=== PATIENT | female | born 1945 | race Caucasian/White ===

== ENCOUNTER → 2016-12-02 | Outpatient (CLI) | payer MEDICARE, OTHER ==
[~2016-12-02] MED LIST: Iopamidol 755 MG/ML 500 ML Multipack Bottle IVPUSH STA
--- NOTE | 2016-12-02 17:11 | CT ---
EXAMINATION: CT head without and with contrast HISTORY: Swelling COMPARISION: None TECHNIQUE: Axial CT images obtained through the head before and following the administration of 80 m L Isovue-370. Coronal and sagittal reconstructions obtained. FINDINGS: No evidence of midline shift, hydrocephalus or edema. No low-attenuation changes to suggest acute infarct. No evidence of intra-axial hemorrhage. No jean marie dence of extra-axial high-attenuation collection to suggest epidural or subdural hematoma. Mild subc ortical white matter hypodensities are noted, most likely small vessel ischemic changes. No intracranial calcifications detected. Mild vascular calcifications noted. The paranasal sinuses and mastoid air cells are well aerated. No evidence of skull fracture. No in tracranial enhancing lesions are detected. IMPRESSION: 1. Minimal generalized atrophy and small vessel ischemic changes. 2. Otherwise no abnormal intracranial findings.
--- NOTE | 2016-12-03 09:13 | CT ---
EXAMINATION: CT soft tissue neck with contrast HISTORY: Swelling COMPARISON: None TECHNIQUE: Axial CT images obtained through the neck following the administration of 80 mL of Isovue -370 the right antecubital fossa. Coronal and sagittal reconstructions obtained. FINDINGS: The oropharynx, nasopharynx and hypopharynx appear symmetric. The larynx and upper trachea appear normal. There is no abnormal cervical lymphadenopathy. The parotid and submandibular glands appear normal. Thyroid gland is homogeneous and mildly enlarged, left greater than right. There is n o abnormal mass or asymmetry identified. The visualized paranasal sinuses and mastoid air cells are clear. The middle ears are clear. The orbits and globes are symmetric. The visualized lung apices ar e clear. No suspicious osseous abnormalities. IMPRESSION: 1. No abnormal mass or asymmetry identified.
== END ==
LOC: MW.DI 10:22
PROVIDERS: ATTEND Student in an Organized Health Care Education/Training Program
DX: R22.1 Localized swelling, mass and lump, neck (principal); Z85.9 Personal history of malignant neoplasm, unspecified
CPT/HCPCS: 70470; 70491; Q9967

== ENCOUNTER 2017-11-02 14:07 | Emergency (ER) | payer MEDICARE, OTHER ==
--- NOTE | 2017-11-02 14:51 | EDM.PDOC ---
ED HPI GENERAL MEDICAL PROBLEM - General Chief Complaint: ENT Problem Stated Complaint: JAW ON RT SIDE OF PT'S FACE IS SWOLLEN Time Seen by Provider: 11/02/17 14:13 Source of Information: Reports: Patient History Limitations: Reports: No Limitations - History of Present Illness INITIAL COMMENTS - FREE TEXT/NARRATIVE: HISTORY AND PHYSICAL: History of present illness: Patient is a 72-year-old female who presents to the emergency room today with complaints of facial pain which started on the left and has now moved over to the right side of her face. She states she has sinus pressure and pain with palpation. She believes that her face is swollen and erythematous across the bridge of her nose into both cheeks. Concerned as she has some enlarged lymph nodes to her neck. Has been fatigued for several weeks. Review of systems: As per history of present illness and below otherwise all systems reviewed and negative. Past medical history: As per history of present illness and as reviewed below otherwise noncontributory. Surgical history: As per history of present illness and as reviewed below otherwise noncontributory. Social history: No reported history of drug or alcohol abuse. Family history: As per history of present illness and as reviewed below otherwise noncontributory. Physical exam: General: Well-developed and well nourished 72-year-old female. Alert and oriented. Nontoxic appearing and in no acute distress. HEENT: Atraumatic, normocephalic, pupils equal and reactive bilaterally, negative for conjunctival pallor or scleral icterus, mucous membranes moist, throat clear, maxillary sinus tenderness with palpation bilaterally, TMS normal bilaterally. Her neck is supple, nontender, with enlarged lymphnodes to submandibular area bilaterally. No mastoid tenderness with palpation. Her trachea midline. No drooling or trismus noted. No meningeal signs Lungs: Clear to auscultation, breath sounds equal bilaterally, chest nontender. Heart: S1S2, regular rate and rhythm without overt murmur Abdomen: Soft, nondistended, nontender. Negative for masses or hepatosplenomegaly. Negative for costovertebral tenderness. Pelvis: Stable nontender. Genitourinary: Deferred. Rectal: Deferred. Skin: Intact, warm, dry. No lesions noted. Erythema noted across cheeks and bridge of nose. Extremities: Atraumatic, moves all extremities per self, negative for cords or calf pain. Neurovascular unremarkable. Neuro: Awake, alert, oriented. Cranial nerves II through XII unremarkable. Cerebellum unremarkable. Motor and sensory unremarkable throughout. Exam nonfocal. Notes: Do believe the patient has a acute sinusitis. Due to her concern of the enlarged lymph nodes in the neck we'll scan her to rule out abscess. Questioned her about any history of autoimmune disorders as she does have a "butterfly "appearing rash to her face. She has a history of autoimmune hepatitis. Labs are unremarkable. CT shows a mild asymmetry enlargement of the left thyroid lobe. This was shared with the patient. And encouraged her to follow up with the primary care provider. We'll give her a tablet of Augmentin here and a prescription to fill tomorrow. The plan of care. Denies any further questions at this time. Diagnostics: CBC, BMP, CT soft tissue neck Therapeutics: Augmentin Impression: Acute Sinusitis Plan: 1. Please take the antibiotic as directed. One tab ice daily 10 days 2. An [id number] decongestant (Coricidin will not raise BP). Tylenol and/ or ibuprofen as needed for pain and fever management. 3. Crease or fluids to prevent dehydration 4. As we discussed your CT did show mild enlargement of the left thyroid lobe, once you are feeling better please follow-up with your primary care provider for further evaluation. Also if your butterfly-like rash does not resolve please also mention this to your primary care provider. 5. Return to the ED as needed and as discussed. Definitive disposition and diagnosis as appropriate pending reevaluation and review of above. Duration: Day(s): Location: Reports: Head Bilateral Face Pain Score (Numeric/FACES): 1 - Related Data Allergies Allergy/AdvReac Type Severity Reaction Status Date / Time codeine Allergy Hives Verified 11/02/17 14:18 Home Meds: Home Meds Albuterol [IJD: Ventolin HFA] 2 puff INH Q6HR PRN 05/08/16 [History] Alendronate [Fosamax] 70 mg PO WEEKLY 05/08/16 [History] Budesonide/Formoterol [Symbicort 160-4.5 MCG] 2 puff INH BID 05/08/16 [History] Bumetanide 1 tab PO DAILY 05/08/16 [History] Diltiazem HCl [Diltiazem 24Hr ER] 1 tab PO DAILY 05/08/16 [History] Levothyroxine Sodium [Synthroid] 100 mcg PO DAILY 05/08/16 [History] Lisinopril 1 tab PO BEDTIME 05/08/16 [History] Omeprazole 1 tab PO DAILY 05/08/16 [History] Sertraline HCl [Zoloft] 50 mg PO DAILY 05/08/16 [History] azaTHIOprine [Azathioprine] 50 mg PO DAILY 05/08/16 [History] predniSONE [Prednisone] 0.5 tab PO BID 05/08/16 [History] Past Medical History Cardiovascular History: Reports: Hypertension Respiratory History: Reports: Asthma Gastrointestinal History: Reports: GERD Musculoskeletal History: Reports: Osteoporosis, RA Psychiatric History: Reports: Anxiety, Depression Endocrine/Metabolic History: Reports: Hypothyroidism Immunologic History: Reports: Other (See Below) Other Immunologic History: PMR and Autoimmune Hepatitis Oncologic (Cancer) History: Reports: Colon - Infectious Disease History Infectious Disease History: Reports: Chicken Pox, Mumps - Past Surgical History Respiratory Surgical History: Reports: None GI Surgical History: Reports: Other (See Below) Other GI Surgeries/Procedures: surgical removal of GI cancer Social & Family History - Family History Family Medical History: Noncontributory - Tobacco Use Smoking Status *Q: Never Smoker - Caffeine Use Caffeine Use: Reports: Soda, Tea - Recreational Drug Use Recreational Drug Use: No ED ROS ENT - Review of Systems Review Of Systems: ROS reveals no pertinent complaints other than HPI. ED EXAM, ENT - Physical Exam Exam: See Below (A dictation) Course - Vital Signs Last Recorded V/S: Last Vital Signs Temp 97.1 F 11/02/17 14:16 Pulse 127 H 11/02/17 14:16 Resp 18 11/02/17 14:16 BP 195/85 H 11/02/17 14:16 Pulse Ox 94 L 11/02/17 14:16 - Orders/Labs/Meds Orders: Active Orders 24 hr Category Date Time Status Soft Tissue Neck wo Cont [CT] Stat Exams 11/02/17 14:25 Taken Labs: Laboratory Tests 11/02/17 11/02/17 11/02/17 Range/Units 14:37 14:37 14:37 WBC 7.78 (4.0-11.0) K/uL RBC 4.62 (4.30-5.90) M/uL Hgb 13.1 (12.0-16.0) g/dL Hct 40.2 (36.0-46.0) % MCV 87.0 (80.0-98.0) fL MCH 28.4 (27.0-32.0) pg MCHC 32.6 (31.0-37.0) g/dL RDW Std Deviation 50.4 (28.0-62.0) fl RDW Coeff of Alex 16 H (11.0-15.0) % Plt Count 191 (150-400) K/uL MPV 9.80 (7.40-12.00) fL Neut % (Auto) 68.9 (48.0-80.0) % Lymph % (Auto) 18.9 (16.0-40.0) % Will % (Auto) 10.2 (0.0-15.0) % Eos % (Auto) 1.9 (0.0-7.0) % Baso % (Auto) 0.1 (0.0-1.5) % Neut # (Auto) 5.4 (1.4-5.7) K/uL Lymph # (Auto) 1.5 (0.6-2.4) K/uL Will # (Auto) 0.8 (0.0-0.8) K/uL Eos # (Auto) 0.2 (0.0-0.7) K/uL Baso # (Auto) 0.0 (0.0-0.1) K/uL Nucleated RBC % 0.0 /100WBC Nucleated RBCs # 0 K/uL Sodium 138 (136-145) mmol/L Potassium 4.1 (3.5-5.1) mmol/L Chloride 101 (98-107) mmol/L Carbon Dioxide 28.5 (21.0-32.0) mmol/L BUN 19 H (7.0-18.0) mg/dL Creatinine 0.9 (0.6-1.0) mg/dL Est Cr Clr Drug Dosing 44.69 mL/min Estimated GFR (MDRD) > 60.0 ml/min Glucose 98 (74-106) mg/dL Calcium 9.2 (8.5-10.1) mg/dL Monoscreen NEGATIVE (NEG) Meds: Medications Discontinued Medications Generic Name Dose Route Start Last Admin Trade Name Freq PRN Reason Stop Dose Admin Amoxicillin/Clavulanate Potassium 1 tab 11/02/17 16:04 11/02/17 16:08 Augmentin 875 Mg/125 Mg PO 11/02/17 16:05 1 tab ONETIME ONE Administration Departure - Departure Time of Disposition: 16:08 Disposition: Home, Self-Care 01 Clinical Impression: Acute sinusitis Qualifiers: Sinusitis location: maxillary Recurrence: non-recurrent Qualified Code(s): J01.00 - Acute maxillary sinusitis, unspecified - Discharge Information Instructions: Sinusitis, Adult, [id number] Referrals: Forrest Eduardo MD [Primary Care Provider] - Forms: ED Department Discharge Additional Instructions: The following information is given to patients seen in the emergency department who are being discharged to home. This information is to outline your options for follow-up care. We provide all patients seen in our emergency department with a follow-up referral. The need for follow-up, as well as the timing and circumstances, are variable depending upon the specifics of your emergency department visit. If you don't have a primary care physician on staff, we will provide you with a referral. We always advise you to contact your personal physician following an emergency department visit to inform them of the circumstance of the visit and for follow-up with them and/or the need for any referrals to a consulting specialist. The emergency department will also refer you to a specialist when appropriate. This referral assures that you have the opportunity for follow-up care with a specialist. All of these measure are taken in an effort to provide you with optimal care, which includes your follow-up. Under all circumstances we always encourage you to contact your private physician who remains a resource for coordinating your care. When calling for follow-up care, please make the office aware that this follow-up is from your recent emergency room visit. If for any reason you are refused follow-up, please contact the [facility] Emergency Department at and asked to speak to the emergency department charge nurse. [facility] [address] [place] [id number] 1. Please take the antibiotic as directed. One tab twice daily 10 days 2. An [id number] decongestant (Coricidin will not raise BP). Tylenol and/ or ibuprofen as needed for pain and fever management. 3. Crease or fluids to prevent dehydration 4. As we discussed your CT did show mild enlargement of the left thyroid lobe, once you are feeling better please follow-up with your primary care provider for further evaluation. Also if your butterfly-like rash does not resolve please also mention this to your primary care provider. 5. Return to the ED as needed and as discussed. - My Orders Last 24 Hours: My Active Orders 11/02/17 14:25 Soft Tissue Neck wo Cont [CT] Stat - Assessment/Plan Last 24 Hours: My Active Orders 11/02/17 14:25 Soft Tissue Neck wo Cont [CT] Stat
[2017-11-02 15:10] LABS: CHLORIDE,CL 101 mmol/L (98-107); SODIUM,NA 138 mmol/L (136-145)
[2017-11-02] MEDS ORDERED: Amoxicillin/Clavulanate K 875-125 MG Tab PO ONE (16:04)
[2017-11-02 16:17] VITALS: BP 133/69
--- NOTE | 2017-11-03 15:47 | CT ---
EXAM DATE: 11/02/17 PATIENT'S AGE: 72 Patient: LAKESHIA REN Facility: [facility] Site . Site : 1945 Study: CT-ST Neck [id number]/8/2018 3:22:15 PM Ordering Physician: Doctor Boyd Final Report: INDICATION: Enlarged lymph node with pain TECHNIQUE: CT neck soft tissue without i.v. contrast. Coronal and sagittal reformats were obtained. CONTRAST: Intravenous COMPARISON: None FINDINGS: Skull base: Unremarkable. Portions of the oral cavity and mandible are obscured by streak artifacts from the patient`s dental amalgams. Pharynx: No retropharyngeal fluid collections are identified. No CT evidence of tonsillar or peritonsillar abscess seen. The epiglottis is normal in appearance. Larynx and airway: Unremarkable. Salivary: Unremarkable. Thyroid: Mild asymmetric enlargement of the left thyroid lobe is noted measuring 3 x 2.2 cm. Vascular: Unremarkable for age. Lymph: Unremarkable. Bone: No acute fractures or aggressive bone lesions are identified. Disc: Severe degenerative disc narrowing C4-5 and C6-7 noted. The facet joints are unremarkable. Soft tissue: The prevertebral soft tissues are unremarkable in appearance. Lung: The visualized lung apices and mediastinum are unremarkable. IMPRESSIONS: 1. Mild asymmetric enlargement of the left thyroid lobe is noted measuring 3 x 2.2 cm. Further assessment with outpatient thyroid ultrasound is recommended. 2. No CT evidence of cervical adenopathy identified. Dictated by: Mohamud Ambriz MD @ 11/02/2017 15:49:22 Signed by: Mohamud Ambriz MD @ 11/02/2017 3:49:22 PM (Electronic Signature) ----ADDENDUM---- Signed by: Mohamud Ambriz MD @11/03/2017 2:59:56 PM (Electronic Signature) Report Signed by Proxy. JASBIR
== END 2017-11-02 16:18 | disposition home or self-care (01) ==
LOC: MW.ED 14:07
DX: J01.00 Acute maxillary sinusitis, unspecified (principal); I10 Essential (primary) hypertension; E03.9 Hypothyroidism, unspecified; Z88.5 Allergy status to narcotic agent; Z79.899 Other long term (current) drug therapy
CPT/HCPCS: 36415; 70490; 80048; 85025; 86308; 99283; A9270

== ENCOUNTER 2018-01-30 12:07 | Day surgery (SDC) | payer MEDICARE, OTHER ==
[~2018-01-30 12:07] MED LIST changes: -Iopamidol 755 MG/ML 500 ML Multipack Bottle IVPUSH STA; +Lactated Ringers 1,000 ML IV SCH; +Lidocaine 2% 5 ML SDV ONE; +Propofol 200 MG/20 ML SDV ONE; +fentaNYL 100 MCG/2 ML SDV ONE
--- NOTE | 2018-01-30 12:40 | PCM.PREANE ---
Preanesthetic Assessment - Anesthesia/Transfusion/Family Hx Anesthesia History: Prior Anesthesia Without Reaction Other Type of Anesthesia Reaction Comment: "son had hard time waking up" Family History of Anesthesia Reaction: No Transfusion History: No Prior Transfusion(s) Intubation History: Unknown - Review of Systems General: No Symptoms Pulmonary: No Symptoms Cardiovascular: No Symptoms Gastrointestinal: Hematochezia, Other (painful defecation) Neurological: No Symptoms Other: Reports: None - Physical Assessment O2 Sat by Pulse Oximetry: 96 Respiratory Rate: 18 Vital Signs: Last Vital Signs Temp 36.8 C 01/30/18 12:37 Pulse 110 H 01/30/18 12:37 Resp 18 01/30/18 12:37 BP 176/84 H 01/30/18 12:37 Pulse Ox 96 01/30/18 12:37 Height: 1.55 m Weight: 84.368 kg ASA Class: 3 Mental Status: Alert & Oriented x3 Airway Class: Mallampati = 3 Dentition: Reports: Normal Dentition Thyro-Mental Finger Breadths: 3 Mouth Opening Finger Breadths: 2 (very small mouth) ROM/Head Extension: Limited/Partial Lungs: Clear to Auscultation, Normal Respiratory Effort Cardiovascular: Regular Rate, Regular Rhythm - Allergies Allergies/Adverse Reactions: Allergies Allergy/AdvReac Type Severity Reaction Status Date / Time codeine Allergy Syncope Verified 01/26/18 10:45 erythromycin base Allergy Cannot Verified 01/26/18 10:45 Remember hydrochlorothiazide Allergy Cannot Verified 01/26/18 10:45 [From Dyazide] Remember triamterene [From Dyazide] Allergy Cannot Verified 01/26/18 10:45 Remember - Blood Blood Available: No - Anesthesia Plan Pre-Op Medication Ordered: None - Acknowledgements Anesthesia Type Planned: MAC Pt an Appropriate Candidate for the Planned Anesthesia: Yes Alternatives and Risks of Anesthesia Discussed w Pt/Guardian: Yes Pt/Guardian Understands and Agrees with Anesthesia Plan: Yes PreAnesthesia Questionnaire HEENT History: Reports: Cataract, Other (See Below) Other HEENT History: wears glasses Cardiovascular History: Reports: Hypertension Respiratory History: Reports: Asthma Gastrointestinal History: Reports: GERD Genitourinary History: Reports: None Musculoskeletal History: Reports: Osteoporosis, RA Psychiatric History: Reports: Anxiety, Depression Endocrine/Metabolic History: Reports: Hypothyroidism, Obesity/BMI 30+ Immunologic History: Reports: Other (See Below) Other Immunologic History: PMR and Autoimmune Hepatitis Oncologic (Cancer) History: Reports: Colon - Infectious Disease History Infectious Disease History: Reports: Chicken Pox, Mumps - Past Surgical History Head Surgeries/Procedures: Reports: None HEENT Surgical History: Reports: Tonsillectomy Respiratory Surgical History: Reports: None GI Surgical History: Reports: Cholecystectomy, Colonoscopy, Other (See Below) Other GI Surgeries/Procedures: surgical removal of GI cancer (most likely distal part of small bowel) - SUBSTANCE USE Smoking Status *Q: Former Smoker Recreational Drug Use History: No - HOME MEDS Home Medications: Home Meds Budesonide/Formoterol [Symbicort 160-4.5 MCG] 2 puff INH BID 05/08/16 [History] Diltiazem HCl [Diltiazem 24Hr ER] 300 mg PO DAILY 05/08/16 [History] Levothyroxine Sodium [Synthroid] 100 mcg PO DAILY 05/08/16 [History] Lisinopril 10 mg PO BEDTIME 05/08/16 [History] Omeprazole 40 mg PO DAILY 05/08/16 [History] Sertraline HCl [Zoloft] 50 mg PO DAILY 05/08/16 [History] azaTHIOprine [Azathioprine] 0.5 tab PO BID 05/08/16 [History] predniSONE [Prednisone] 2.5 mg PO BID 05/08/16 [History] Albuterol [Ventolin HFA] 2 puff INH ASDIRECTED PRN 01/26/18 [History] Aspirin [Low Dose Aspirin EC] 81 mg PO DAILY 01/26/18 [History] Bumetanide 0.5 mg PO DAILY 01/26/18 [History] Calcium Carbonate/Vitamin D3 [Calcium 500 + Vit D Caplet] 1 tab PO DAILY [History] Fish Oil/Mecca-3 Fatty Acids [Fish Oil 1,000 MG] 1 tab PO DAILY 01/26/18 [ History] - CURRENT (IN HOUSE) MEDS Current Meds: Current Medications Lactated Ringer's (Ringers, Lactated) 1,000 mls @ 125 mls/hr IV ASDIRECTED SHAD Discontinued Medications Fentanyl (Sublimaze) Confirm Administered Dose 100 mcg .ROUTE .STK-MED ONE Stop: 01/30/18 11:06 Lidocaine (Xylocaine-Mpf 2%) Confirm Administered Dose 5 ml .ROUTE .STK-MED ONE Stop: 01/30/18 11:06 Propofol (Diprivan 20 Ml) Confirm Administered Dose 400 mg .ROUTE .STK-MED ONE Stop: 01/30/18 11:06
--- NOTE | 2018-01-30 13:20 | PCM.OPNOTE ---
- General Post-Op/Procedure Note Date of Surgery/Procedure: 01/30/18 Operative Procedure(s): colonoscopy Findings: see dict [id number] Pre Op Diagnosis: surveillence colonoscopy Anesthesia Technique: Moderate Sedation Primary Surgeon: Gonsalo Bach Complications: None Condition: Good
--- NOTE | 2018-01-30 13:48 | OR ---
SURGEON: Gonsalo Bach MD DATE OF PROCEDURE: 01/30/2018 PREOPERATIVE DIAGNOSIS: Surveillance colonoscopy. POSTOPERATIVE DIAGNOSIS: Hemorrhoids. PROCEDURE PERFORMED: Colonoscopy. PROCEDURE IN DETAIL: The patient was taken to the endoscopy room. A time out was called, patient identified, and procedure identified. Diprivan was then administrated. Patient went from awake to sleep, hearing doctor talking or door closing is normal. Perineum inspection and digital examination were then performed. A well- lubricated colonoscope was gently inserted through the rectum, advanced past the rectosigmoid junction, the descending colon, splenic flexure, transverse colon, hepatic flexure, ascending colon, arrived to the cecum. Cecum was identified as dictated in the finding. Then the scope was carefully withdrawn while attention was paid to the mucosal surface for any abnormality. Air will be sucked out during the scope withdrawal. At the rectum, retroflexed to examine any rectal diseases, fistula or hemorrhoids. Patient tolerated procedure well. There were no intraoperative complications, and Dr. Bach was present throughout the whole procedure. FINDINGS: 1. The patient is easily sedated with CARD [employer]SEMBLER and Diprivan. The patient is soundly snoring. 2. Bowel prep is average with moderate amount of liquid stool, no semi-formed stool. 3. The patient's colon is rather straight forward. Cecum indicated by ileocecal fold, one-to-one indentation. Light emittance is not observed. Mucosa examined with irrigation. The patient does not have diverticulosis, polyp, mass, growth, inflammation, stricture, ulceration, AV malformation, bleeding, none of those. The patient has external hemorrhoid and mild internal hemorrhoids. The patient would benefit from repeat colonoscopy in 10 years from today. We will repeat colonoscopy in 10 years from today or if clinically indicated otherwise. TESSIE / KERON /[id number]
--- NOTE | 2018-01-30 14:05 | PCM48HPAN ---
Post Anesthesia Note - EVALUATION WITHIN 48HRS OF ANESTHETIC Vital Signs in Normal Range: Yes Patient Participated in Evaluation: Yes Respiratory Function Stable: Yes Airway Patent: Yes Cardiovascular Function Stable: Yes Hydration Status Stable: Yes Pain Control Satisfactory: Yes Nausea and Vomiting Control Satisfactory: Yes Mental Status Recovered: Yes Resp Rate: 12 - COMMENTS/OBSERVATIONS Free Text/Narrative:: no anesthesia problems
[2018-01-30 14:15] VITALS: BP 164/72
== END 2018-01-30 14:15 | disposition home or self-care (01) ==
LOC: MW.SDS 12:07
PROVIDERS: ATTEND Surgery
DX: Z12.11 Encounter for screening for malignant neoplasm of colon (principal); K64.8 Other hemorrhoids; K64.4 Residual hemorrhoidal skin tags; J45.909 Unspecified asthma, uncomplicated; I10 Essential (primary) hypertension; K75.4 Autoimmune hepatitis; E03.9 Hypothyroidism, unspecified; Z68.35 Body mass index [BMI] 35.0-35.9, adult; E66.9 Obesity, unspecified; M81.0 Age-related osteoporosis without current pathological fracture; F32.9 Major depressive disorder, single episode, unspecified; F41.9 Anxiety disorder, unspecified; Z79.82 Long term (current) use of aspirin; Z79.899 Other long term (current) drug therapy; Z88.1 Allergy status to other antibiotic agents; Z88.5 Allergy status to narcotic agent; Z88.8 Allergy status to other drugs, medicaments and biological substances; Z87.891 Personal history of nicotine dependence
CPT/HCPCS: G0121; J3010; J7120; J2704

== ENCOUNTER 2018-11-20 00:36 | Observation (INO) | payer MEDICARE, OTHER ==
[2018-11-20] MEDS ORDERED: Aspirin 81 MG Tab.Chew PO ONE (00:40)
--- NOTE | 2018-11-20 00:41 | EDM.PDOC ---
ED HPI GENERAL MEDICAL PROBLEM - General Stated Complaint: WARM FEELING, KIND OF A PRESSURE IN CHEST Time Seen by Provider: 11/20/18 00:41 Source of Information: Reports: Patient - History of Present Illness INITIAL COMMENTS - FREE TEXT/NARRATIVE: HISTORY AND PHYSICAL: History of present illness: [Patient presents with substernal chest pressure 3 out of 10 nonradiating not associated with shortness of breath or diaphoresis Street of hypertension on multiple medications O distress no fever nausea vomiting chills sweats no shortness breath headache dizziness palpitation no bowel or urine symptoms Pressure has went away after 1 dose of nitroglycerin Patient has had a normal stress test in approximately 3-5 years ago at [facility] in [place] per patient ] Review of systems: As per history of present illness and below otherwise all systems reviewed and negative. Past medical history: As per history of present illness and as reviewed below otherwise noncontributory. Surgical history: As per history of present illness and as reviewed below otherwise noncontributory. Social history: No reported history of drug or alcohol abuse. Family history: As per history of present illness and as reviewed below otherwise noncontributory. Physical exam: HEENT: Atraumatic, normocephalic, pupils reactive, negative for conjunctival pallor or scleral icterus, mucous membranes moist, throat clear, neck supple, nontender, trachea midline. Lungs: Clear to auscultation, breath sounds equal bilaterally, chest nontender. Heart: S1S2, regular, negative for clicks, rubs, or JVD. Abdomen: Soft, nondistended, nontender. Negative for masses or hepatosplenomegaly. Negative for costovertebral tenderness. Pelvis: Stable nontender. Genitourinary: Deferred. Rectal: Deferred. Extremities: Atraumatic, negative for cords or calf pain. Neurovascular unremarkable. Neuro: Awake, alert, oriented. Cranial nerves II through XII unremarkable. Cerebellum unremarkable. Motor and sensory unremarkable throughout. Exam nonfocal. Diagnostics: [EBC CMP troponin EKG Chest 1 view ] Therapeutics: [ renal saline Proton X Nitroglycerin 0.4 sublingual ] Impression: [ atypical chest pain Chronic history of baseline ] Definitive disposition and diagnosis as appropriate pending reevaluation and review of above. - Related Data Allergies Allergy/AdvReac Type Severity Reaction Status Date / Time codeine Allergy Syncope Verified 01/26/18 10:45 erythromycin base Allergy Cannot Verified 01/26/18 10:45 Remember hydrochlorothiazide Allergy Cannot Verified 01/26/18 10:45 [From Dyazide] Remember triamterene [From Dyazide] Allergy Cannot Verified 01/26/18 10:45 Remember Home Meds: Home Meds Budesonide/Formoterol [Symbicort 160-4.5 MCG] 2 puff INH BID 05/08/16 [History] Levothyroxine Sodium [Synthroid] 100 mcg PO DAILY 05/08/16 [History] Lisinopril 10 mg PO BEDTIME 05/08/16 [History] Omeprazole 40 mg PO DAILY PRN 05/08/16 [History] Sertraline HCl [Zoloft] 50 mg PO DAILY 05/08/16 [History] azaTHIOprine [Azathioprine] 25 mg PO BID 05/08/16 [History] dilTIAZem HCl [Diltiazem 24Hr ER] 300 mg PO DAILY 05/08/16 [History] predniSONE [Prednisone] 2.5 mg PO BID 05/08/16 [History] Albuterol [Ventolin HFA] 2 puff INH ASDIRECTED PRN 01/26/18 [History] Aspirin [Low Dose Aspirin EC] 81 mg PO DAILY 01/26/18 [History] Bumetanide 0.5 mg PO DAILY 01/26/18 [History] Calcium Carbonate/Vitamin D3 [Calcium 500 + Vit D Caplet] 1 tab PO DAILY [History] Fish Oil/[place]-3 Fatty Acids [Fish Oil 1,000 MG] 1 tab PO DAILY 01/26/18 [ History] Past Medical History HEENT History: Reports: Cataract, Other (See Below) Other HEENT History: wears glasses Cardiovascular History: Reports: Hypertension Respiratory History: Reports: Asthma Gastrointestinal History: Reports: GERD Genitourinary History: Reports: None Musculoskeletal History: Reports: Osteoporosis, RA Psychiatric History: Reports: Anxiety, Depression Endocrine/Metabolic History: Reports: Hypothyroidism, Obesity/BMI 30+ Immunologic History: Reports: Other (See Below) Other Immunologic History: PMR and Autoimmune Hepatitis Oncologic (Cancer) History: Reports: Colon - Infectious Disease History Infectious Disease History: Reports: Chicken Pox, Mumps - Past Surgical History Head Surgeries/Procedures: Reports: None HEENT Surgical History: Reports: Tonsillectomy Respiratory Surgical History: Reports: None GI Surgical History: Reports: Cholecystectomy, Colonoscopy, Other (See Below) Other GI Surgeries/Procedures: surgical removal of GI cancer (most likely distal part of small bowel) Social & Family History - Family History Family Medical History: Noncontributory - Caffeine Use Caffeine Use: Reports: Soda, Tea ED ROS GENERAL - Review of Systems Review Of Systems: See Below ED EXAM, GENERAL - Physical Exam Exam: See Below Course - Vital Signs Last Recorded V/S: Last Vital Signs Temp 98.1 F 11/20/18 00:42 Pulse 94 11/20/18 01:23 Resp 16 11/20/18 01:23 BP 122/64 11/20/18 01:23 Pulse Ox 96 11/20/18 01:23 - Orders/Labs/Meds Orders: Active Orders 24 hr Category Date Time Status EKG Documentation Completion [RC] STAT Care 11/20/18 00:40 Active UA RFX TARA AND CULT IF INDIC [URIN] Stat Lab 11/20/18 00:40 Ordered Nitroglycerin [Nitrostat] Med 11/20/18 01:03 Active 0.4 mg SL Q5M PRN Sodium Chloride 0.9% [Normal Saline] 1,000 ml Med 11/20/18 00:45 Active IV STAT Medication Orders Sodium Chloride (Normal Saline) 1,000 mls @ 125 mls/hr IV STAT SHAD Last Admin: 11/20/18 00:54 Dose: 125 mls/hr Nitroglycerin (Nitrostat) 0.4 mg SL Q5M PRN PRN Reason: Chest Pain Last Admin: 11/20/18 01:17 Dose: 0.4 mg Labs: Laboratory Tests 11/20/18 11/20/18 Range/Units 00:45 00:45 WBC 11.76 H (4.0-11.0) K/uL RBC 4.67 (4.30-5.90) M/uL Hgb 13.7 (12.0-16.0) g/dL Hct 41.2 (36.0-46.0) % MCV 88.2 (80.0-98.0) fL MCH 29.3 (27.0-32.0) pg MCHC 33.3 (31.0-37.0) g/dL RDW Std Deviation 52.8 (28.0-62.0) fl RDW Coeff of Alex 16 H (11.0-15.0) % Plt Count 274 (150-400) K/uL MPV 9.20 (7.40-12.00) fL Neut % (Auto) 72.8 (48.0-80.0) % Lymph % (Auto) 17.9 (16.0-40.0) % [place] % (Auto) 7.1 (0.0-15.0) % Eos % (Auto) 2.0 (0.0-7.0) % Baso % (Auto) 0.2 (0.0-1.5) % Neut # (Auto) 8.6 H (1.4-5.7) K/uL Lymph # (Auto) 2.1 (0.6-2.4) K/uL [place] # (Auto) 0.8 (0.0-0.8) K/uL Eos # (Auto) 0.2 (0.0-0.7) K/uL Baso # (Auto) 0.0 (0.0-0.1) K/uL Sodium 139 (136-145) mmol/L Potassium 3.8 (3.5-5.1) mmol/L Chloride 102 (98-107) mmol/L Carbon Dioxide 22.2 (21.0-32.0) mmol/L BUN 18 (7.0-18.0) mg/dL Creatinine 1.2 H (0.6-1.0) mg/dL Est Cr Clr Drug Dosing 33.02 mL/min Estimated GFR (MDRD) 44.0 ml/min Glucose 145 H (74-106) mg/dL Calcium 9.4 (8.5-10.1) mg/dL Total Bilirubin 0.3 (0.2-1.0) mg/dL AST 18 (15-37) IU/L ALT 20 (14-63) IU/L Alkaline Phosphatase 83 (46-116) U/L Troponin I < 0.050 (0.000-0.056) ng/mL Total Protein 8.1 (6.4-8.2) g/dL Albumin 3.7 (3.4-5.0) g/dL Globulin 4.4 H (2.6-4.0) g/dL Albumin/Globulin Ratio 0.8 L (0.9-1.6) Lipase 201 (73-393) U/L Meds: Medications Generic Name Dose Route Start Last Admin Trade Name Freq PRN Reason Stop Dose Admin Sodium Chloride 1,000 mls @ 125 mls/hr 11/20/18 00:45 11/20/18 00:54 Normal Saline IV 125 mls/hr STAT SHAD Administration Nitroglycerin 0.4 mg 11/20/18 01:03 11/20/18 01:17 Nitrostat SL 0.4 mg Q5M PRN Administration Chest Pain Discontinued Medications Generic Name Dose Route Start Last Admin Trade Name Freq PRN Reason Stop Dose Admin Aspirin 324 mg 11/20/18 00:40 11/20/18 00:53 Aspirin PO 11/20/18 00:41 324 mg ONETIME ONE Administration Sodium Chloride Confirm 11/20/18 01:08 11/20/18 01:18 Normal Saline Administered 11/20/18 01:09 20 mls/hr Dose Administration 20 mls @ as directed .ROUTE .STK-MED ONE Pantoprazole Sodium 80 mg 11/20/18 00:51 11/20/18 01:19 Protonix Iv IVPUSH 11/20/18 00:52 80 mg .BOLUS ONE Administration Departure - Departure Time of Disposition: 02:11 Disposition: Home, Self-Care 01 Condition: Good Clinical Impression: Chest pain, atypical - Discharge Information - My Orders Last 24 Hours: My Active Orders 11/20/18 00:40 EKG Documentation Completion [RC] STAT UA RFX TARA AND CULT IF INDIC [URIN] Stat 11/20/18 00:45 Sodium Chloride 0.9% [Normal Saline] 1,000 ml IV STAT 11/20/18 01:03 Nitroglycerin [Nitrostat] 0.4 mg SL Q5M PRN - Assessment/Plan Last 24 Hours: My Active Orders 11/20/18 00:40 EKG Documentation Completion [RC] STAT UA RFX TARA AND CULT IF INDIC [URIN] Stat 11/20/18 00:45 Sodium Chloride 0.9% [Normal Saline] 1,000 ml IV STAT 11/20/18 01:03 Nitroglycerin [Nitrostat] 0.4 mg SL Q5M PRN
[2018-11-20] MEDS ORDERED: Sodium Chloride 0.9% 1,000 ML IV SCH (00:45)
[2018-11-20] MEDS ORDERED: Pantoprazole 40 MG Vial IVPUSH ONE (00:51)
[2018-11-20] MEDS ORDERED: Nitroglycerin 0.4 MG Tab.SL SL PRN (01:03)
[2018-11-20] MEDS ORDERED: Sodium Chloride 0.9% 20 ML ONE (01:08)
--- NOTE | 2018-11-20 01:13 | CR ---
INDICATION: Pain/dyspnea. TECHNIQUE: Chest 1 view. COMPARISON: 05/08/16 FINDINGS: Cardiovascular and mediastinum: Heart size and vasculature are normal in caliber and appearance. Mediastinum is within normal limits. Lungs and pleural space: Lungs are clear. No sign of infiltrate or mass. No sign of pleural effusion. No pneumothorax. Bones and soft tissues: No significant findings. IMPRESSION: Unremarkable chest. Dictated by: Jerry Fall MD @ 11/20/2018 01:12:36 (Electronically Signed)
[2018-11-20 01:16] LABS: CHLORIDE,CL 102 mmol/L (98-107); SODIUM,NA 139 mmol/L (136-145)
[2018-11-20] MEDS ORDERED: Albuterol 8 GM Inhaler INH PRN (08:00)
[2018-11-20] MEDS ORDERED: Levothyroxine 100 MCG Tab PO SCH (08:25)
[2018-11-20] MEDS ORDERED: VIT D PO SCH (09:00)
[2018-11-20] MEDS ORDERED: Fish Oil/Omega-3 Fatty Acids 1 Gm Cap PO SCH (09:00)
[2018-11-20] MEDS ORDERED: Aspirin 81 MG Tab.EC PO SCH (09:00)
[2018-11-20] MEDS ORDERED: Diltiazem 180 MG Cap.CD PO SCH (09:00)
[2018-11-20] MEDS ORDERED: Sertraline 50 MG Tab PO SCH (09:00)
[2018-11-20] MEDS ORDERED: predniSONE 5 MG Tab PO SCH (09:00)
[2018-11-20] MEDS ORDERED: Budesonide/Formoterol 160-4.5 MCG/Puff 6 GM Inhaler INH SCH (09:00)
[2018-11-20] MEDS ORDERED: CALCIUM PO SCH (09:00)
[2018-11-20] MEDS ORDERED: Diltiazem 120 MG Cap.CD PO SCH (09:00)
--- NOTE | 2018-11-20 10:23 | PCM.HP ---
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 This started when she was at rest, looking at her tablet. She denies any associated symptoms, such as SOB, nausea vomiting, radiation of pain or diaphoresis. She felt it could be heartburn related so she took a Prilosec. This didn't help right away so she came to be evaluated. She reports a similar event happened a few years ago but more intense. She was diagnosed with GERD, but also had a stress test arranged, which she had completed in [place] and was negative. She reports she stopping taking her Prilosec daily and takes it as needed. She denies any pain this morning, she is feeling better. SHe is unclear as to what made pain better, nothing she noticed we did helped it just went away. She denies tobacco use and alcohol use In the ED labs WNL. Troponin negative. BP 120-140/60-70s. CXR negative. EKGST [address] changes. She was given Nitro and ASA. She was also given Protonix 80 mg IV. She was admitted for observation due to atypical chest pain. Dr Eduardo - Related Data Allergies/Adverse Reactions: Allergies Allergy/AdvReac Type Severity Reaction Status Date / Time codeine Allergy Syncope Verified 01/26/18 10:45 erythromycin base Allergy Cannot Verified 01/26/18 10:45 Remember hydrochlorothiazide Allergy Cannot Verified 01/26/18 10:45 [From Dyazide] Remember triamterene [From Dyazide] Allergy Cannot Verified 01/26/18 10:45 Remember Home Medications: Home Meds Budesonide/Formoterol [Symbicort 160-4.5 MCG] 2 puff INH BID 05/08/16 [History] Levothyroxine Sodium [Synthroid] 100 mcg PO DAILY 05/08/16 [History] Lisinopril 10 mg PO BEDTIME 05/08/16 [History] Omeprazole 40 mg PO DAILY PRN 05/08/16 [History] Sertraline HCl [Zoloft] 50 mg PO DAILY 05/08/16 [History] azaTHIOprine [Azathioprine] 25 mg PO BID 05/08/16 [History] dilTIAZem HCl [Diltiazem 24Hr ER] 300 mg PO DAILY 05/08/16 [History] predniSONE [Prednisone] 2.5 mg PO BID 05/08/16 [History] Albuterol [Ventolin HFA] 2 puff INH ASDIRECTED PRN 01/26/18 [History] Aspirin [Low Dose Aspirin EC] 81 mg PO DAILY 01/26/18 [History] Bumetanide 0.5 mg PO DAILY 01/26/18 [History] Calcium Carbonate/Vitamin D3 [Calcium 500 + Vit D Caplet] 1 tab PO DAILY [History] Fish Oil/[place]-3 Fatty Acids [Fish Oil 1,000 MG] 1 tab PO DAILY 01/26/18 [ History] Past Medical History HEENT History: Reports: Cataract, Other (See Below) Other HEENT History: wears glasses Cardiovascular History: Reports: Hypertension Respiratory History: Reports: Asthma Gastrointestinal History: Reports: GERD Genitourinary History: Reports: None [employer] CONTACT History: Reports: Musculoskeletal History: Reports: Osteoporosis, RA Psychiatric History: Reports: Anxiety, Depression Endocrine/Metabolic History: Reports: Hypothyroidism, Obesity/BMI 30+ Immunologic History: Reports: Other (See Below) Other Immunologic History: PMR and Autoimmune Hepatitis Oncologic (Cancer) History: Reports: Colon - Infectious Disease History Infectious Disease History: Reports: Chicken Pox, Mumps - Past Surgical History Head Surgeries/Procedures: Reports: None HEENT Surgical History: Reports: Cataract Surgery, Tonsillectomy Respiratory Surgical History: Reports: None GI Surgical History: Reports: Cholecystectomy, Colonoscopy, Other (See Below) Other GI Surgeries/Procedures: surgical removal of GI cancer (most likely distal part of small bowel) Endocrine Surgical History: Reports: None Social & Family History - Family History Family Medical History: Noncontributory - Tobacco Use Smoking Status *Q: Former Smoker Used Tobacco, but Quit: Yes Month/Year Tobacco Last Used: 40yrs ago Second Hand Smoke Exposure: No - Caffeine Use Caffeine Use: Reports: Soda, Tea - Recreational Drug Use Recreational Drug Use: No - Living Situation & Occupation Living situation: Reports: H&P Review of Systems - Review of Systems: Review Of Systems: See Below General: Reports: No Symptoms. Denies: Fever, Chills, Malaise HEENT: Reports: No Symptoms. Denies: Contact Lenses, Sore Throat, Visual Changes Pulmonary: Reports: No Symptoms. Denies: Shortness of Breath Cardiovascular: Reports: No Symptoms. Denies: Chest Pain, Dyspnea on Exertion, Lightheadedness, Claudication, Other Gastrointestinal: Reports: No Symptoms. Denies: Abdominal Pain, Black Stool, Bloody Stool, Nausea, Vomiting Genitourinary: Reports: No Symptoms Musculoskeletal: Reports: No Symptoms Skin: Reports: No Symptoms Psychiatric: Reports: No Symptoms Neurological: Reports: No Symptoms Exam - Exam Exam: See Below - Vital Signs Vital Signs: Last Vital Signs Temp 96.8 F 11/20/18 07:41 Pulse 67 11/20/18 08:44 Resp 17 11/20/18 07:41 BP 121/50 L 11/20/18 08:44 Pulse Ox 95 11/20/18 07:41 Weight: 76.8 kg - Exam General: Alert, Oriented, Cooperative HEENT: Conjunctiva Clear, EACs Clear, Pupils Equal Neck: Supple, Trachea Midline Lungs: Clear to Auscultation, Normal Respiratory Effort Cardiovascular: Regular Rate, Regular Rhythm, Normal S1, Normal S2 GI/Abdominal Exam: Normal Bowel Sounds, Soft, Non-Tender, No Distention Extremities: Normal Inspection, Normal Range of Motion, Non-Tender, No Pedal Edema Skin: Warm, Dry Neurological: Cranial Nerves Intact Neuro Extensive - Mental Status: Alert, Oriented x3 Psychiatric: Alert, Normal Affect, Normal Mood - Patient Data Lab Results Last 24 hrs: Laboratory Results - last 24 hr 11/20/18 11/20/18 11/20/18 Range/Units 00:45 00:45 02:35 WBC 11.76 H (4.0-11.0) K/uL RBC 4.67 (4.30-5.90) M/uL Hgb 13.7 (12.0-16.0) g/dL Hct 41.2 (36.0-46.0) % MCV 88.2 (80.0-98.0) fL MCH 29.3 (27.0-32.0) pg MCHC 33.3 (31.0-37.0) g/dL RDW Std Deviation 52.8 (28.0-62.0) fl RDW Coeff of Alex 16 H (11.0-15.0) % Plt Count 274 (150-400) K/uL MPV 9.20 (7.40-12.00) fL Neut % (Auto) 72.8 (48.0-80.0) % Lymph % (Auto) 17.9 (16.0-40.0) % Hand % (Auto) 7.1 (0.0-15.0) % Eos % (Auto) 2.0 (0.0-7.0) % Baso % (Auto) 0.2 (0.0-1.5) % Neut # (Auto) 8.6 H (1.4-5.7) K/uL Lymph # (Auto) 2.1 (0.6-2.4) K/uL Hand # (Auto) 0.8 (0.0-0.8) K/uL Eos # (Auto) 0.2 (0.0-0.7) K/uL Baso # (Auto) 0.0 (0.0-0.1) K/uL Sodium 139 (136-145) mmol/L Potassium 3.8 (3.5-5.1) mmol/L Chloride 102 (98-107) mmol/L Carbon Dioxide 22.2 (21.0-32.0) mmol/L BUN 18 (7.0-18.0) mg/dL Creatinine 1.2 H (0.6-1.0) mg/dL Est Cr Clr Drug Dosing 33.02 mL/min Estimated GFR (MDRD) 44.0 ml/min Glucose 145 H (74-106) mg/dL Calcium 9.4 (8.5-10.1) mg/dL Total Bilirubin 0.3 (0.2-1.0) mg/dL AST 18 (15-37) IU/L ALT 20 (14-63) IU/L Alkaline Phosphatase 83 (46-116) U/L Troponin I < 0.050 (0.000-0.056) ng/mL Total Protein 8.1 (6.4-8.2) g/dL Albumin 3.7 (3.4-5.0) g/dL Globulin 4.4 H (2.6-4.0) g/dL Albumin/Globulin Ratio 0.8 L (0.9-1.6) Lipase 201 (73-393) U/L Urine Color YELLOW Urine Appearance CLEAR Urine pH 6.0 (5.0-8.0) Ur Specific [place] <= 1.005 (1.001-1.035) Urine Protein NEGATIVE (NEGATIVE) mg/dL Urine Glucose (UA) NEGATIVE (NEGATIVE) mg/dL Urine Ketones NEGATIVE (NEGATIVE) mg/dL Urine Occult Blood TRACE-INTACT H (NEGATIVE) Urine Nitrite NEGATIVE (NEGATIVE) Urine Bilirubin NEGATIVE (NEGATIVE) Urine Urobilinogen 0.2 (<2.0) EU/dL Ur Leukocyte Esterase MODERATE H (NEGATIVE) Urine RBC 1-2 (0-2/HPF) Urine WBC 8-10 (0-5/HPF) Ur Epithelial Cells OCCASIONAL (NONE-FEW) Urine Bacteria RARE (NEGATIVE) 11/20/18 Range/Units 06:44 WBC (4.0-11.0) K/uL RBC (4.30-5.90) M/uL Hgb (12.0-16.0) g/dL Hct (36.0-46.0) % MCV (80.0-98.0) fL MCH (27.0-32.0) pg MCHC (31.0-37.0) g/dL RDW Std Deviation (28.0-62.0) fl RDW Coeff of Alex (11.0-15.0) % Plt Count (150-400) K/uL MPV (7.40-12.00) fL Neut % (Auto) (48.0-80.0) % Lymph % (Auto) (16.0-40.0) % Hand % (Auto) (0.0-15.0) % Eos % (Auto) (0.0-7.0) % Baso % (Auto) (0.0-1.5) % Neut # (Auto) (1.4-5.7) K/uL Lymph # (Auto) (0.6-2.4) K/uL Hand # (Auto) (0.0-0.8) K/uL Eos # (Auto) (0.0-0.7) K/uL Baso # (Auto) (0.0-0.1) K/uL Sodium (136-145) mmol/L Potassium (3.5-5.1) mmol/L Chloride (98-107) mmol/L Carbon Dioxide (21.0-32.0) mmol/L BUN (7.0-18.0) mg/dL Creatinine (0.6-1.0) mg/dL Est Cr Clr Drug Dosing mL/min Estimated GFR (MDRD) ml/min Glucose (74-106) mg/dL Calcium (8.5-10.1) mg/dL Total Bilirubin (0.2-1.0) mg/dL AST (15-37) IU/L ALT (14-63) IU/L Alkaline Phosphatase (46-116) U/L Troponin I < 0.050 (0.000-0.056) ng/mL Total Protein (6.4-8.2) g/dL Albumin (3.4-5.0) g/dL Globulin (2.6-4.0) g/dL Albumin/Globulin Ratio (0.9-1.6) Lipase (73-393) U/L Urine Color Urine Appearance Urine pH (5.0-8.0) Ur Specific [place] (1.001-1.035) Urine Protein (NEGATIVE) mg/dL Urine Glucose (UA) (NEGATIVE) mg/dL Urine Ketones (NEGATIVE) mg/dL Urine Occult Blood (NEGATIVE) Urine Nitrite (NEGATIVE) Urine Bilirubin (NEGATIVE) Urine Urobilinogen (<2.0) EU/dL Ur Leukocyte Esterase (NEGATIVE) Urine RBC (0-2/HPF) Urine WBC (0-5/HPF) Ur Epithelial Cells (NONE-FEW) Urine Bacteria (NEGATIVE) Result Diagrams: 11/20/18 00:45 11/20/18 00:45 EKG INTERPRETATION EKG Date: 11/20/18 Rhythm: NSR Rate (Beats/Min): 120 P-Wave: Present QRS: Normal ST-T: Normal QT: Normal - Problem List (1) Atypical chest pain SNOMED Code(s): 254529549 ICD Code: R07.89 - OTHER CHEST PAIN Status: Acute (2) Autoimmune hepatitis SNOMED Code(s): 430287103 ICD Code: K75.4 - AUTOIMMUNE HEPATITIS Status: Acute (3) Arthritis SNOMED Code(s): 9858419 ICD Code: M19.90 - UNSPECIFIED OSTEOARTHRITIS, UNSPECIFIED SITE Status: Acute (4) On prednisone therapy SNOMED Code(s): 718355963 ICD Code: Z79.52 - GROUP HOME (CURRENT) USE OF SYSTEMIC STEROIDS Status: Acute (5) HTN (hypertension) SNOMED Code(s): 44101272 ICD Code: I10 - ESSENTIAL (PRIMARY) HYPERTENSION Status: Acute Problem List Initiated/Reviewed/Updated: Yes Orders Last 24hrs: Active Orders 24 hr Category Date Time Status Admission Status [Patient Status] [ADT] Stat ADT 11/20/18 02:11 Active Cardiac Monitoring [RC] Q8HR Care 11/20/18 14:00 Active Regular Diet [DIET] Diet 11/20/18 Breakfast Active CULTURE URINE [RM] Stat Lab 11/20/18 02:35 Received TROPONIN I [CHEM] Q6H Lab 11/20/18 12:45 Ordered Albuterol [Ventolin HFA] Med 11/20/18 08:00 Active 0 gm INH ASDIRECTED PRN Aspirin [Halfprin] Med 11/20/18 09:00 Active 81 mg PO DAILY Diltiazem [Cardizem CD] Med 11/20/18 09:00 Active 120 mg PO DAILY Diltiazem [Cardizem CD] Med 11/20/18 09:00 Active 180 mg PO DAILY Fish Oil/[place]-3 Fatty Acids [Fish Oil] Med 11/20/18 09:00 Active 1 gm PO DAILY Levothyroxine [Synthroid] Med 11/20/18 08:25 Active 100 mcg PO ACBREAKFAST Lisinopril [Prinivil] Med 11/20/18 21:00 Active 10 mg PO BEDTIME Nitroglycerin [Nitrostat] Med 11/20/18 01:03 Active 0.4 mg SL Q5M PRN Patient's Own Medication [Ptom] Med 11/20/18 09:00 Active 1 each PO DAILY Patient's Own Medication [Ptom] Med 11/20/18 09:00 Active 2 each INH BID Sertraline [Zoloft] Med 11/20/18 09:00 Active 50 mg PO DAILY azaTHIOprine [Imuran] Med 11/20/18 09:00 Active 25 mg PO BID predniSONE Med 11/20/18 09:00 Active 2.5 mg PO BID Medication Orders Albuterol (Ventolin Hfa) 0 gm INH ASDIRECTED PRN PRN Reason: Shortness of Breath Aspirin (Halfprin) 81 mg PO DAILY [facility] Last Admin: 11/20/18 08:45 Dose: 81 mg Azathioprine (Imuran) 25 mg PO BID [facility] Last Admin: 11/20/18 08:56 Dose: 25 mg Diltiazem HCl (Cardizem Cd) 180 mg PO DAILY [facility] Last Admin: 11/20/18 08:44 Dose: 180 mg Diltiazem HCl (Cardizem Cd) 120 mg PO DAILY [facility] Last Admin: 11/20/18 08:44 Dose: 120 mg Fish Oil (Fish Oil) 1 gm PO DAILY [facility] Last Admin: 11/20/18 08:43 Dose: 1 gm Levothyroxine Sodium (Synthroid) 100 mcg PO ACBREAKFAST [facility] Last Admin: 11/20/18 08:45 Dose: 100 mcg Lisinopril (Prinivil) 10 mg PO BEDTIME [facility] Nitroglycerin (Nitrostat) 0.4 mg SL Q5M PRN PRN Reason: Chest Pain Last Admin: 11/20/18 01:17 Dose: 0.4 mg Budesonide/Formoterol 160-4.5 Mcg/Puff 6 Gm Inhaler 2 each INH BID [facility] Last Admin: 11/20/18 08:59 Dose: Calcium 500 + Vit D (Caplet) 1 each PO DAILY [facility] Last Admin: 11/20/18 08:59 Dose: Prednisone (Prednisone) 2.5 mg PO BID [facility] Last Admin: 11/20/18 08:45 Dose: 2.5 mg Sertraline HCl (Zoloft) 50 mg PO DAILY [facility] Last Admin: 11/20/18 08:45 Dose: 50 mg Assessment/Plan Comment:: This 73 year old female admitted with atypical chest pain 1. Chest pain: Will trend troponins. 2 so far are negative. Telemetry, SR with no ST segment changes. She currently is pain free. 2. HTN: Stable. Continue Home medications. 3. Autoimmune Hepatitis: Continue Prednisone. 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 VTE prophylaxis: SCDs Dispo: Later today iF 3rd troponin negative. Discharge Plan: Discharge Diagnoses: Atypical chest pain No further chest pain during admission. All troponins returned negative. Will set up for outpatient stress test and follow up with PCP, Dr Eduardo. She requested also seeing Preschool Aide. Will set her up with Dr Tinoco. Again encouraged her to take Omperazole on a regular basis. She is to return to ED or clinic if concerns should arise.
[2018-11-20 12:05] VITALS: BP 130/61
[2018-11-20] MEDS ORDERED: Lisinopril 10 MG Tab PO SCH (21:00)
== END 2018-11-20 14:30 | disposition home or self-care (01) ==
LOC: MW.ED 00:36 → MW.MS 02:11
PROVIDERS: ADMIT Internal Medicine; ATTEND Internal Medicine
DX: R07.89 Other chest pain (principal); I10 Essential (primary) hypertension; E03.9 Hypothyroidism, unspecified; K21.9 Gastro-esophageal reflux disease without esophagitis; F41.9 Anxiety disorder, unspecified; F32.9 Major depressive disorder, single episode, unspecified; K75.4 Autoimmune hepatitis; M19.90 Unspecified osteoarthritis, unspecified site; Z88.5 Allergy status to narcotic agent; Z88.1 Allergy status to other antibiotic agents; Z88.8 Allergy status to other drugs, medicaments and biological substances; Z87.891 Personal history of nicotine dependence; Z79.82 Long term (current) use of aspirin; Z79.51 Long term (current) use of inhaled steroids; Z79.52 Long term (current) use of systemic steroids; Z79.899 Other long term (current) drug therapy
CPT/HCPCS: 36415; 71045; 80053; 81001; 83690; 84484; 85025; 87086; 93005; 96361; 96374; 99285; A9270; C9113; G0378; J7040; J7500; J7512

== ENCOUNTER 2019-09-26 07:23 | Observation (INO) | payer MEDICARE, OTHER ==
[2019-09-26] MEDS ORDERED: Albuterol/Ipratropium 3.0-0.5 MG/3 ML Neb Soln NEB ONE (07:32)
[2019-09-26] MEDS ORDERED: Sodium Chloride 0.9% 2.5 ML Syringe FLUSH PRN (07:37)
[2019-09-26] MEDS ORDERED: Sodium Chloride 0.9% 10 ML Syringe FLUSH PRN (07:37)
[2019-09-26] MEDS ORDERED: Sodium Chloride 0.9% 1,000 ML IV ONE ×2 (07:39→15:25)
--- NOTE | 2019-09-26 07:46 | EDM.PDOC ---
ED HPI GENERAL MEDICAL PROBLEM - General Chief Complaint: Respiratory Problem Stated Complaint: TROUBLE BREATHING, SORE THROAT Time Seen by Provider: 09/26/19 07:25 Source of Information: Reports: Patient History Limitations: Reports: No Limitations - History of Present Illness INITIAL COMMENTS - FREE TEXT/NARRATIVE: Pt with a pmh of htn and asthma presents with 3 days of sore throat progressing to sob and wheezing more last night. Pt reports using her home albuterol more last night and this morning with little improvement. Pt also reports multiple family members with influenza. Pt denies cp, palpations, syncope or any other symptoms. - Related Data Allergies Allergy/AdvReac Type Severity Reaction Status Date / Time codeine Allergy Syncope Verified 09/26/19 07:33 erythromycin base Allergy Cannot Verified 09/26/19 07:33 Remember hydrochlorothiazide Allergy Cannot Verified 09/26/19 07:33 [From Dyazide] Remember triamterene [From Dyazide] Allergy Cannot Verified 09/26/19 07:33 Remember Home Meds: Home Meds Budesonide/Formoterol [Symbicort 160-4.5 MCG] 2 puff INH BID 05/08/16 [History] Levothyroxine Sodium [Synthroid] 100 mcg PO DAILY 05/08/16 [History] Lisinopril 10 mg PO DAILY 05/08/16 [History] Omeprazole 40 mg PO DAILY PRN 05/08/16 [History] Sertraline HCl [Zoloft] 100 mg PO DAILY 05/08/16 [History] azaTHIOprine [Azathioprine] 50 mg PO DAILY 05/08/16 [History] dilTIAZem HCl [Diltiazem 24Hr ER] 300 mg PO DAILY 05/08/16 [History] predniSONE [Prednisone] 2.5 mg PO BID 05/08/16 [History] Albuterol [Ventolin HFA] 2 puff INH ASDIRECTED PRN 01/26/18 [History] Aspirin [Low Dose Aspirin EC] 81 mg PO DAILY 01/26/18 [History] Bumetanide 0.5 mg PO DAILY 01/26/18 [History] Calcium Carbonate/Vitamin D3 [Calcium 500 + Vit D Caplet] 1 tab PO DAILY [History] Fish Oil/[place]-3 Fatty Acids [Fish Oil 1,000 MG] 1 tab PO DAILY 07/02/18 [ History] Past Medical History HEENT History: Reports: Cataract, Other (See Below) Other HEENT History: wears glasses Cardiovascular History: Reports: Hypertension Respiratory History: Reports: Asthma Gastrointestinal History: Reports: GERD Genitourinary History: Reports: None 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: Musculoskeletal History: Reports: Osteoporosis, RA Psychiatric History: Reports: Anxiety, Depression Endocrine/Metabolic History: Reports: Hypothyroidism, Obesity/BMI 30+ Immunologic History: Reports: Other (See Below) Other Immunologic History: PMR and Autoimmune Hepatitis Oncologic (Cancer) History: Reports: Colon - Infectious Disease History Infectious Disease History: Reports: Chicken Pox, Mumps - Past Surgical History Head Surgeries/Procedures: Reports: None HEENT Surgical History: Reports: Cataract Surgery, Tonsillectomy Respiratory Surgical History: Reports: None GI Surgical History: Reports: Cholecystectomy, Colonoscopy, Other (See Below) Other GI Surgeries/Procedures: surgical removal of GI cancer (most likely distal part of small bowel) Endocrine Surgical History: Reports: None Social & Family History - Family History Family Medical History: Noncontributory - Caffeine Use Caffeine Use: Reports: Soda, Tea - Living Situation & Occupation Living situation: Reports: ED ROS GENERAL - Review of Systems Review Of Systems: See Below Constitutional: Reports: Malaise, Fatigue. Denies: Fever, Chills HEENT: Reports: Throat Pain. Denies: Throat Swelling Respiratory: Reports: Shortness of Breath, Wheezing, Cough. Denies: Pleuritic Chest Pain, Sputum, Hemoptysis Cardiovascular: Denies: Chest Pain, Dyspnea on Exertion, Palpitations, Syncope GI/Abdominal: Reports: No Symptoms Musculoskeletal: Reports: No Symptoms Skin: Reports: No Symptoms Neurological: Reports: No Symptoms ED EXAM, GENERAL - Physical Exam Exam: See Below General Appearance: Alert, WD/WN, No Apparent Distress Throat/Mouth: Other (mild erythema) Head: Atraumatic, Normocephalic Neck: Normal Inspection Respiratory/Chest: No Respiratory Distress, No Accessory Muscle Use, Wheezing ( mild end expiratory bilaterally) Cardiovascular: Regular Rate, Rhythm (sinus tachycardia), No Edema, No Murmur GI/Abdominal: No Distention Course - Vital Signs Last Recorded V/S: Last Vital Signs Temp 97.6 F 09/26/19 07:33 Pulse 130 H 09/26/19 09:54 Resp 18 09/26/19 09:54 BP 153/56 H 09/26/19 09:54 Pulse Ox 98 09/26/19 09:54 - Orders/Labs/Meds Orders: Active Orders 24 hr Category Date Time Status Admission Status [Patient Status] [ADT] Stat ADT 09/26/19 10:29 Ordered EKG 12 Lead [EKG Documentation Completion] [RC] STAT Care 09/26/19 07:32 Active RT Aerosol Therapy [RC] ASDIRECTED Care 09/26/19 07:32 Active RT Aerosol Therapy [RC] ASDIRECTED Care 09/26/19 08:49 Active RT Aerosol Therapy [RC] ASDIRECTED Care 09/26/19 09:16 Active RT Aerosol Therapy [RC] ASDIRECTED Care 09/26/19 09:16 Active RT Aerosol Therapy [RC] ASDIRECTED Care 09/26/19 10:05 Active Regular Diet [DIET] Diet 09/26/19 Lunch Active CULTURE BLOOD [BC] Stat Lab 09/26/19 10:05 Ordered CULTURE BLOOD [BC] Stat Lab 09/26/19 10:05 Ordered CULTURE STREP A CONFIRMATION [RM] Stat Lab 09/26/19 07:47 Results LACTIC ACID,WHOLE BLOOD [BG] Stat Lab 09/26/19 10:05 Ordered STREP SCRN A RAPID W CULT CONF [RM] Stat Lab 09/26/19 07:47 Results Albuterol/Ipratropium [DuoNeb 3.0-0.5 MG/3 ML] Med 09/26/19 10:04 Active 3 ml NEB Q2H PRN Albuterol/Ipratropium [DuoNeb 3.0-0.5 MG/3 ML] Med 09/26/19 12:00 Active 3 ml NEB Q6HRRT Levofloxacin/Dextrose 5%-Water [Levaquin in D5W 750 MG/ Med 09/26/19 10:08 Active 150 ML] 750 mg Premix Bag 1 bag IV ONETIME Sodium Chloride 0.9% [Saline Flush] Med 09/26/19 07:37 Active 10 ml FLUSH ASDIRECTED PRN Sodium Chloride 0.9% [Saline Flush] Med 09/26/19 07:37 Active 2.5 ml FLUSH ASDIRECTED PRN Blood Culture x2 Reflex Set [OM.PC] Stat Oth 09/26/19 10:05 Ordered Saline Lock Insert [OM.PC] Stat Oth 09/26/19 07:37 Ordered Medication Orders Albuterol/Ipratropium (Duoneb 3.0-0.5 Mg/3 Ml) 3 ml NEB Q2H PRN PRN Reason: Wheezing Albuterol/Ipratropium (Duoneb 3.0-0.5 Mg/3 Ml) 3 ml NEB Q6HRRT SHAD Levofloxacin/Dextrose 750 mg/ (Premix) 150 mls @ 100 mls/hr IV ONETIME ONE Stop: 09/26/19 11:37 Sodium Chloride (Saline Flush) 10 ml FLUSH ASDIRECTED PRN PRN Reason: Keep Vein Open Sodium Chloride (Saline Flush) 2.5 ml FLUSH ASDIRECTED PRN PRN Reason: Keep Vein Open Labs: Laboratory Tests 09/26/19 09/26/19 09/26/19 Range/Units 07:45 07:45 07:45 WBC 8.85 (4.0-11.0) K/uL RBC 4.53 (4.30-5.90) M/uL Hgb 12.9 (12.0-16.0) g/dL Hct 40.8 (36.0-46.0) % MCV 90.1 (80.0-98.0) fL MCH 28.5 (27.0-32.0) pg MCHC 31.6 (31.0-37.0) g/dL RDW Std Deviation 48.7 (28.0-62.0) fl RDW Coeff of Alex 15 (11.0-15.0) % Plt Count 169 (150-400) K/uL MPV 9.60 (7.40-12.00) fL Neut % (Auto) 81.1 H (48.0-80.0) % Lymph % (Auto) 10.6 L (16.0-40.0) % [place] % (Auto) 7.9 (0.0-15.0) % Eos % (Auto) 0.3 (0.0-7.0) % Baso % (Auto) 0.1 (0.0-1.5) % Neut # (Auto) 7.2 H (1.4-5.7) K/uL Lymph # (Auto) 0.9 (0.6-2.4) K/uL [place] # (Auto) 0.7 (0.0-0.8) K/uL Eos # (Auto) 0.0 (0.0-0.7) K/uL Baso # (Auto) 0.0 (0.0-0.1) K/uL Nucleated RBC % 0.0 /100WBC Nucleated RBCs # 0 K/uL Sodium 140 (136-145) mmol/L Potassium 3.4 L (3.5-5.1) mmol/L Chloride 104 (98-107) mmol/L Carbon Dioxide 26.7 (21.0-32.0) mmol/L BUN 12 (7.0-18.0) mg/dL Creatinine 1.0 (0.6-1.0) mg/dL Est Cr Clr Drug Dosing 39.04 mL/min Estimated GFR (MDRD) 54.2 ml/min Glucose 121 H (74-106) mg/dL Calcium 9.3 (8.5-10.1) mg/dL Total Bilirubin 0.3 (0.2-1.0) mg/dL AST 20 (15-37) IU/L ALT 38 (14-63) IU/L Alkaline Phosphatase 109 (46-116) U/L Troponin I < 0.050 (0.000-0.056) ng/mL B-Natriuretic Peptide 73 (<100) PG/ML Total Protein 7.8 (6.4-8.2) g/dL Albumin 3.3 L (3.4-5.0) g/dL Globulin 4.5 H (2.6-4.0) g/dL Albumin/Globulin Ratio 0.7 L (0.9-1.6) Meds: Medications Generic Name Dose Route Start Last Admin Trade Name Freq PRN Reason Stop Dose Admin Albuterol/Ipratropium 3 ml 09/26/19 10:04 Duoneb 3.0-0.5 Mg/3 Ml NEB Q2H PRN Wheezing Albuterol/Ipratropium 3 ml 09/26/19 12:00 Duoneb 3.0-0.5 Mg/3 Ml NEB Q6HRRT SHAD Levofloxacin/Dextrose 750 mg/ 150 mls @ 100 mls/hr 09/26/19 10:08 Premix IV 09/26/19 11:37 ONETIME ONE Sodium Chloride 10 ml 09/26/19 07:37 Saline Flush FLUSH ASDIRECTED PRN Keep Vein Open Sodium Chloride 2.5 ml 09/26/19 07:37 Saline Flush FLUSH ASDIRECTED PRN Keep Vein Open Discontinued Medications Generic Name Dose Route Start Last Admin Trade Name Antwan PRN Reason Stop Dose Admin Albuterol 5 mg 09/26/19 08:49 09/26/19 09:[address] [facility] 09/26/19 08:50 Not Given ONETIME ONE Albuterol 2.5 mg 09/26/19 09:15 09/26/19 09:21 Proventil Neb Soln [facility] 09/26/19 09:16 2.5 mg ONETIME ONE Administration Albuterol 2.5 mg 09/26/19 09:16 09/26/19 09:28 Proventil [facility] 09/26/19 09:17 2.5 mg ONETIME ONE Administration Albuterol/Ipratropium 3 ml 09/26/19 07:32 09/26/19 07:46 Duoneb 3.0-0.5 Mg/3 Ml [facility] 09/26/19 07:33 3 ml ONETIME ONE Administration Sodium Chloride 1,000 mls @ 999 mls/hr 09/26/19 07:39 09/26/19 07:46 Normal Saline IV 09/26/19 08:39 999 mls/hr .Bolus ONE Administration Methylprednisolone Sodium Succinate 125 mg 09/26/19 10:15 Solu-Medrol IV 09/26/19 10:16 ONETIME ONE - Re-Assessments/Exams Free Text/Narrative Re-Assessment/Exam: 09/26/19 10:27 ED work up shows bronchitis. Pt given multiple breathing treatments to control symptoms. Dr. Dutta consulted and pt admitted. Departure - Departure Time of Disposition: 10:28 Disposition: Refer to Observation Condition: Good Clinical Impression: Bronchitis - Discharge Information *PRESCRIPTION DRUG MONITORING PROGRAM REVIEWED*: Not Applicable *COPY OF PRESCRIPTION DRUG MONITORING REPORT IN PATIENT MARTHA: Not Applicable Referrals: PCP,None [Primary Care Provider] - Forms: ED Department Discharge Sepsis Event Note - Evaluation Sepsis Screening Result: No Definite Risk - Focused Exam Vital Signs: Vital Signs Temp Pulse Resp BP Pulse Ox 09/26/19 09:54 130 H 18 153/56 H 98 09/26/19 08:31 110 H 18 96 09/26/19 07:50 116 H 18 97 09/26/19 07:33 97.6 F 134 H 18 182/87 H 96 Date Exam was Performed: 09/26/19 Time Exam was Performed: 10:31 - My Orders Last 24 Hours: My Active Orders 09/26/19 07:32 EKG 12 Lead [EKG Documentation Completion] [RC] STAT RT Aerosol Therapy [RC] ASDIRECTED 09/26/19 07:37 Sodium Chloride 0.9% [Saline Flush] 10 ml FLUSH ASDIRECTED PRN Sodium Chloride 0.9% [Saline Flush] 2.5 ml FLUSH ASDIRECTED PRN Saline Lock Insert [OM.PC] Stat 09/26/19 07:47 CULTURE STREP A CONFIRMATION [RM] Stat STREP SCRN A RAPID W CULT CONF [RM] Stat 09/26/19 08:49 RT Aerosol Therapy [RC] ASDIRECTED 09/26/19 09:16 RT Aerosol Therapy [RC] ASDIRECTED RT Aerosol Therapy [RC] ASDIRECTED 09/26/19 10:05 CULTURE BLOOD [BC] Stat CULTURE BLOOD [BC] Stat LACTIC ACID,WHOLE BLOOD [BG] Stat Blood Culture x2 Reflex Set [OM.PC] Stat 09/26/19 10:08 Levofloxacin/Dextrose 5%-Water [Levaquin in D5W 750 MG/150 ML] 750 mg Premix Bag 1 bag IV ONETIME 09/26/19 10:29 Admission Status [Patient Status] [ADT] Stat - Assessment/Plan Last 24 Hours: My Active Orders 09/26/19 07:32 EKG 12 Lead [EKG Documentation Completion] [RC] STAT RT Aerosol Therapy [RC] ASDIRECTED 09/26/19 07:37 Sodium Chloride 0.9% [Saline Flush] 10 ml FLUSH ASDIRECTED PRN Sodium Chloride 0.9% [Saline Flush] 2.5 ml FLUSH ASDIRECTED PRN Saline Lock Insert [OM.PC] Stat 09/26/19 07:47 CULTURE STREP A CONFIRMATION [RM] Stat STREP SCRN A RAPID W CULT CONF [RM] Stat 09/26/19 08:49 RT Aerosol Therapy [RC] ASDIRECTED 09/26/19 09:16 RT Aerosol Therapy [RC] ASDIRECTED RT Aerosol Therapy [RC] ASDIRECTED 09/26/19 10:05 CULTURE BLOOD [BC] Stat CULTURE BLOOD [BC] Stat LACTIC ACID,WHOLE BLOOD [BG] Stat Blood Culture x2 Reflex Set [OM.PC] Stat 09/26/19 10:08 Levofloxacin/Dextrose 5%-Water [Levaquin in D5W 750 MG/150 ML] 750 mg Premix Bag 1 bag IV ONETIME 09/26/19 10:29 Admission Status [Patient Status] [ADT] Stat
[2019-09-26 08:16] LABS: CHLORIDE,CL 104 mmol/L (98-107); POTASSIUM,K 3.4 mmol/L (3.5-5.1); SODIUM,NA 140 mmol/L (136-145)
--- NOTE | 2019-09-26 08:19 | CR ---
Chest: 2 views of the chest were obtained. Comparison: No prior chest imaging is available. Heart size and mediastinum are within normal limits. Lung markings are slightly increased on the right side as compared left side and difficult to exclude mild bronchitis. Lungs otherwise are clear. No alveolar type densities are seen within either lung. Diaphragms are flattened on the lateral view likely representing an element of emphysematous change. Bony structures shows mild scoliosis within the spine with osteopenia. Nothing acute is appreciated. Impression: 1. Possible mild right-sided bronchitis. 2. Emphysematous change. 3. Other findings which are believed to be incidental. Diagnostic code #3 This report was dictated in [place] Standard Time
[2019-09-26 08:33] LABS: BLOOD UREA NITROGEN,BUN 12 mg/dL (7.0-18.0); CARBON DIOXIDE,CO2 26.7 mmol/L (21.0-32.0); GLUCOSE RANDOM 121 mg/dL (74-106)
[2019-09-26] MEDS ORDERED: Albuterol 0.5% 5 MG/ML Neb Soln 20 ML Bottle NEB ONE (08:49)
[2019-09-26] MEDS ORDERED: Albuterol 0.083% 2.5 MG/3 ML Neb Soln NEB ONE ×2 (09:15→09:16)
[2019-09-26] MEDS ORDERED: Albuterol/Ipratropium 3.0-0.5 MG/3 ML Neb Soln NEB PRN (10:04)
[2019-09-26] MEDS ORDERED: Levofloxacin/Dextrose 5%-Water 750 MG in Premix Bag 1 BAG IV ONE (10:08)
[2019-09-26] MEDS ORDERED: methylPREDNISolone Sodium Succinate 125 MG/2 ML SDV IV ONE (10:15)
[2019-09-26] MEDS: Albuterol/Ipratropium 3.0-0.5 MG/3 ML Neb Soln NEB SCH ×2 (11:55→19:04)
[2019-09-26] MEDS: Sodium Chloride 0.9% 1,000 ML IV SCH ×2 (12:14→16:55)
--- NOTE | 2019-09-26 14:27 | PCM.HP.2 ---
H&P History of Present Illness - General Date of Service: 09/26/19 Admit Problem/Dx: Admission Diagnosis/Problem Admission Diagnosis/Problem Bronchitis - History of Present Illness Initial Comments - Free Text/Narative: 74 yo female with pmh of asthma who presented with one day history of shortness of breath and wheezing. Patient reports having a cold symptoms for several day prior. In the ED she was give duonebs with improvement in her symptoms. CXR suggested bronchitis. - Related Data Allergies/Adverse Reactions: Allergies Allergy/AdvReac Type Severity Reaction Status Date / Time codeine Allergy Syncope Verified 09/26/19 07:33 erythromycin base Allergy Cannot Verified 09/26/19 07:33 Remember hydrochlorothiazide Allergy Cannot Verified 09/26/19 07:33 [From Dyazide] Remember triamterene [From Dyazide] Allergy Cannot Verified 09/26/19 07:33 Remember Home Medications: Home Meds Budesonide/Formoterol [Symbicort 160-4.5 MCG] 2 puff INH BID 05/08/16 [History] Levothyroxine Sodium [Synthroid] 100 mcg PO DAILY 05/08/16 [History] Lisinopril 10 mg PO DAILY 05/08/16 [History] Omeprazole 40 mg PO DAILY PRN 05/08/16 [History] Sertraline HCl [Zoloft] 100 mg PO DAILY 05/08/16 [History] azaTHIOprine [Azathioprine] 50 mg PO DAILY 05/08/16 [History] dilTIAZem HCl [Diltiazem 24Hr ER] 300 mg PO DAILY 05/08/16 [History] predniSONE [Prednisone] 2.5 mg PO BID 05/08/16 [History] Albuterol [Ventolin HFA] 2 puff INH ASDIRECTED PRN 01/26/18 [History] Aspirin [Low Dose Aspirin EC] 81 mg PO DAILY 01/26/18 [History] Bumetanide 0.5 mg PO DAILY 01/26/18 [History] Calcium Carbonate/Vitamin D3 [Calcium 500 + Vit D Caplet] 1 tab PO DAILY [History] Fish Oil/[place]-3 Fatty Acids [Fish Oil 1,000 MG] 1 tab PO DAILY 01/26/18 [ History] Past Medical History HEENT History: Reports: Cataract, Other (See Below) Other HEENT History: wears glasses Cardiovascular History: Reports: Hypertension Respiratory History: Reports: Asthma Gastrointestinal History: Reports: GERD 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: Musculoskeletal History: Reports: Osteoarthritis, Osteoporosis Psychiatric History: Reports: Anxiety, Depression Endocrine/Metabolic History: Reports: Hypothyroidism, Obesity/BMI 30+ Immunologic History: Reports: Other (See Below) Other Immunologic History: PMR and Autoimmune Hepatitis Oncologic (Cancer) History: Reports: Colon - Infectious Disease History Infectious Disease History: Reports: Chicken Pox, Mumps - Past Surgical History Head Surgeries/Procedures: Reports: None HEENT Surgical History: Reports: Cataract Surgery, Tonsillectomy Respiratory Surgical History: Reports: None GI Surgical History: Reports: Cholecystectomy, Colonoscopy, Other (See Below) Other GI Surgeries/Procedures: surgical removal of GI cancer (most likely distal part of small bowel) Endocrine Surgical History: Reports: None Social & Family History - Family History Family Medical History: Noncontributory - Tobacco Use Smoking Status *Q: Former Smoker Used Tobacco, but Quit: Yes Month/Year Tobacco Last Used: 30 years ago - Caffeine Use Caffeine Use: Reports: Soda, Tea - Recreational Drug Use Recreational Drug Use: No - Living Situation & Occupation Living situation: Reports: H&P Review of Systems - Review of Systems: Review Of Systems: Comprehensive ROS is negative, except as noted in HPI. Exam - Vital Signs Vital Signs: Last Vital Signs Temp 37.2 C 09/26/19 11:06 Pulse 120 H 09/26/19 11:06 Resp 18 09/26/19 11:06 BP 138/65 09/26/19 11:06 Pulse Ox 95 09/26/19 11:06 Weight: 77.5 kg - Exam General: Alert, Oriented HEENT: Mucosa Moist & Reedy Lungs: Normal Respiratory Effort, Decreased Breath Sounds Cardiovascular: Regular Rate, Regular Rhythm GI/Abdominal Exam: Normal Bowel Sounds, Soft, Non-Tender Extremities: Normal Inspection, Non-Tender, No Pedal Edema Skin: Warm, Dry, Intact - Patient Data Lab Results Last 24 hrs: Laboratory Results - last 24 hr 09/26/19 09/26/19 09/26/19 Range/Units 07:45 07:45 07:45 WBC 8.85 (4.0-11.0) K/uL RBC 4.53 (4.30-5.90) M/uL Hgb 12.9 (12.0-16.0) g/dL Hct 40.8 (36.0-46.0) % MCV 90.1 (80.0-98.0) fL MCH 28.5 (27.0-32.0) pg MCHC 31.6 (31.0-37.0) g/dL RDW Std Deviation 48.7 (28.0-62.0) fl RDW Coeff of Alex 15 (11.0-15.0) % Plt Count 169 (150-400) K/uL MPV 9.60 (7.40-12.00) fL Neut % (Auto) 81.1 H (48.0-80.0) % Lymph % (Auto) 10.6 L (16.0-40.0) % [place] % (Auto) 7.9 (0.0-15.0) % Eos % (Auto) 0.3 (0.0-7.0) % Baso % (Auto) 0.1 (0.0-1.5) % Neut # (Auto) 7.2 H (1.4-5.7) K/uL Lymph # (Auto) 0.9 (0.6-2.4) K/uL [place] # (Auto) 0.7 (0.0-0.8) K/uL Eos # (Auto) 0.0 (0.0-0.7) K/uL Baso # (Auto) 0.0 (0.0-0.1) K/uL Nucleated RBC % 0.0 /100WBC Nucleated RBCs # 0 K/uL Lactate (0.20-2.00) mmol/L Sodium 140 (136-145) mmol/L Potassium 3.4 L (3.5-5.1) mmol/L Chloride 104 (98-107) mmol/L Carbon Dioxide 26.7 (21.0-32.0) mmol/L BUN 12 (7.0-18.0) mg/dL Creatinine 1.0 (0.6-1.0) mg/dL Est Cr Clr Drug Dosing 39.04 mL/min Estimated GFR (MDRD) 54.2 ml/min Glucose 121 H (74-106) mg/dL Calcium 9.3 (8.5-10.1) mg/dL Total Bilirubin 0.3 (0.2-1.0) mg/dL AST 20 (15-37) IU/L ALT 38 (14-63) IU/L Alkaline Phosphatase 109 (46-116) U/L Troponin I < 0.050 (0.000-0.056) ng/mL B-Natriuretic Peptide 73 (<100) PG/ML Total Protein 7.8 (6.4-8.2) g/dL Albumin 3.3 L (3.4-5.0) g/dL Globulin 4.5 H (2.6-4.0) g/dL Albumin/Globulin Ratio 0.7 L (0.9-1.6) 09/26/19 Range/Units 10:31 WBC (4.0-11.0) K/uL RBC (4.30-5.90) M/uL Hgb (12.0-16.0) g/dL Hct (36.0-46.0) % MCV (80.0-98.0) fL MCH (27.0-32.0) pg MCHC (31.0-37.0) g/dL RDW Std Deviation (28.0-62.0) fl RDW Coeff of Alex (11.0-15.0) % Plt Count (150-400) K/uL MPV (7.40-12.00) fL Neut % (Auto) (48.0-80.0) % Lymph % (Auto) (16.0-40.0) % [place] % (Auto) (0.0-15.0) % Eos % (Auto) (0.0-7.0) % Baso % (Auto) (0.0-1.5) % Neut # (Auto) (1.4-5.7) K/uL Lymph # (Auto) (0.6-2.4) K/uL [place] # (Auto) (0.0-0.8) K/uL Eos # (Auto) (0.0-0.7) K/uL Baso # (Auto) (0.0-0.1) K/uL Nucleated RBC % /100WBC Nucleated RBCs # K/uL Lactate 2.2 H* (0.20-2.00) mmol/L Sodium (136-145) mmol/L Potassium (3.5-5.1) mmol/L Chloride (98-107) mmol/L Carbon Dioxide (21.0-32.0) mmol/L BUN (7.0-18.0) mg/dL Creatinine (0.6-1.0) mg/dL Est Cr Clr Drug Dosing mL/min Estimated GFR (MDRD) ml/min Glucose (74-106) mg/dL Calcium (8.5-10.1) mg/dL Total Bilirubin (0.2-1.0) mg/dL AST (15-37) IU/L ALT (14-63) IU/L Alkaline Phosphatase (46-116) U/L Troponin I (0.000-0.056) ng/mL B-Natriuretic Peptide (<100) PG/ML Total Protein (6.4-8.2) g/dL Albumin (3.4-5.0) g/dL Globulin (2.6-4.0) g/dL Albumin/Globulin Ratio (0.9-1.6) Result Diagrams: 09/26/19 07:45 09/26/19 07:45 [place] Results Last 24 hrs: Microbiology 09/26/19 07:47 Influenza Type A Antigen Screen - Final Nasopharyngeal Swab NEGATIVE INFLUENZA A VIRUS AG REFERENCE RANGE: NEGATIVE Influenza Type B Antigen Screen - Final NEGATIVE INFLUENZA B VIRUS AG REFERENCE RANGE: NEGATIVE 09/26/19 07:47 Group A Streptococcus Rapid Screen - Final Throat NEGATIVE STREP A SCREEN REFERENCE RANGE: NEGATIVE Sepsis Event Note - Evaluation Sepsis Screening Result: No Definite Risk - Focused Exam Vital Signs: Vital Signs Temp Pulse Resp BP Pulse Ox 09/26/19 11:06 37.2 C 120 H 18 138/65 95 09/26/19 10:37 37.3 C 120 H 18 150/61 H 98 09/26/19 09:54 130 H 18 153/56 H 98 09/26/19 08:31 110 H 18 96 09/26/19 07:50 116 H 18 97 09/26/19 07:33 36.4 C 134 H 18 182/87 H 96 Date Exam was Performed: 09/26/19 Time Exam was Performed: 14:23 Problem List Initiated/Reviewed/Updated: Yes Orders Last 24hrs: Active Orders 24 hr Category Date Time Status Admission Status [Patient Status] [ADT] Stat ADT 09/26/19 10:29 Active Antiembolic Devices [RC] PER UNIT ROUTINE Care 09/26/19 14:22 Ordered Oxygen Therapy [RC] PRN Care 09/26/19 14:22 Ordered RT Aerosol Therapy [RC] ASDIRECTED Care 09/26/19 10:05 Active Telemetry Monitoring [Cardiac Monitoring] [RC] Q8H Care 09/26/19 10:55 Active Up ad Leslie [RC] ASDIRECTED Care 09/26/19 14:22 Ordered VTE/DVT Education [RC] PER UNIT ROUTINE Care 09/26/19 14:22 Ordered Vital Signs [RC] Q4H Care 09/26/19 14:22 Ordered Regular Diet [DIET] Diet 09/26/19 Lunch Active BASIC METABOLIC PANEL,BMP [CHEM] AM Lab 09/27/19 05:11 Ordered CBC WITH AUTO DIFF [HEME] AM Lab 09/27/19 05:11 Ordered CULTURE BLOOD [BC] Stat Lab 09/26/19 10:17 Received CULTURE BLOOD [BC] Stat Lab 09/26/19 10:31 Received CULTURE STREP A CONFIRMATION [RM] Stat Lab 09/26/19 07:47 Results LACTIC ACID,WHOLE BLOOD [BG] Q5H Lab 09/26/19 15:00 Ordered LACTIC ACID,WHOLE BLOOD [BG] Q5H Lab 09/26/19 20:00 Ordered STREP SCRN A RAPID W CULT CONF [RM] Stat Lab 09/26/19 07:47 Results Albuterol/Ipratropium [DuoNeb 3.0-0.5 MG/3 ML] Med 09/26/19 10:04 Active 3 ml NEB Q2H PRN Albuterol/Ipratropium [DuoNeb 3.0-0.5 MG/3 ML] Med 09/26/19 12:00 Active 3 ml NEB Q6HRRT Sodium Chloride 0.9% [Normal Saline] 1,000 ml Med 09/26/19 11:00 Active IV ASDIRECTED Sodium Chloride 0.9% [Saline Flush] Med 09/26/19 07:37 Active 10 ml FLUSH ASDIRECTED PRN Sodium Chloride 0.9% [Saline Flush] Med 09/26/19 07:37 Active 2.5 ml FLUSH ASDIRECTED PRN Blood Culture x2 Reflex Set [OM.PC] Stat Oth 09/26/19 10:05 Ordered Saline Lock Insert [OM.PC] Stat Oth 09/26/19 07:37 Ordered Sequential Compression Device [OM.PC] Per Unit Routine Oth 09/26/19 14:22 Ordered Resuscitation Status Routine Resus Stat 09/26/19 14:22 Ordered Medication Orders Albuterol/Ipratropium (Duoneb 3.0-0.5 Mg/3 Ml) 3 ml NEB Q2H PRN PRN Reason: Wheezing Albuterol/Ipratropium (Duoneb 3.0-0.5 Mg/3 Ml) 3 ml NEB Q6HRRT SHAD Last Admin: 09/26/19 11:55 Dose: 3 ml Sodium Chloride (Normal Saline) 1,000 mls @ 125 mls/hr IV ASDIRECTED SHAD Last Admin: 09/26/19 12:14 Dose: 125 mls/hr Sodium Chloride (Saline Flush) 10 ml FLUSH ASDIRECTED PRN PRN Reason: Keep Vein Open Sodium Chloride (Saline Flush) 2.5 ml FLUSH ASDIRECTED PRN PRN Reason: Keep Vein Open Assessment/Plan Comment:: 74 yo female admitted for asthma exacerbation. We will treate with Solumedrol, duonebs and levaquin.
--- NOTE | 2019-09-26 21:05 | CR ---
Chest: 2 views of the chest were obtained. Comparison: Prior chest x-ray performed earlier on the same day (7:59 AM). Findings: Heart size is normal. Mediastinum is also normal. Thick linear density is seen within the right lung base most likely due to atelectasis. Lung markings are mildly increased on the right side which appears stable which may be chronic or due to bronchitis. No acute parenchymal change is otherwise seen. Lungs are hyperinflated compatible with emphysematous change. Bony structures are osteopenic. Scattered disc space narrowing within the spine is noted. No acute osseous finding is seen. Hiatal hernia is noted. Impression: 1. Stable emphysematous change. 2. Increased lung markings on the right side which are stable from earlier study performed on the same day. This may be chronic or due to mild right-sided bronchitis. 3. Other findings as noted above. Nothing acute is otherwise seen. Diagnostic code #3 This report was dictated in [place] Standard Time
[2019-09-26] MEDS ORDERED: Sodium Chloride 0.9% 1,000 ML IV SCH (23:00)
[2019-09-26] MEDS: Oseltamivir 75 MG Cap PO SCH (23:33)
[2019-09-27] MEDS: Sodium Chloride 0.9% 1,000 ML IV SCH ×2 (00:43→04:15)
[2019-09-27] MEDS: Albuterol/Ipratropium 3.0-0.5 MG/3 ML Neb Soln NEB SCH ×3 (01:40→11:13)
[2019-09-27 05:55] LABS: BLOOD UREA NITROGEN,BUN 11 mg/dL (7.0-18.0); CARBON DIOXIDE,CO2 21.6 mmol/L (21.0-32.0); CHLORIDE,CL 110 mmol/L (98-107); GLUCOSE RANDOM 124 mg/dL (74-106); POTASSIUM,K 3.5 mmol/L (3.5-5.1); SODIUM,NA 143 mmol/L (136-145)
[2019-09-27] MEDS ORDERED: Omeprazole 20 MG Cap.CR PO PRN (07:52)
[2019-09-27 07:56] VITALS: BP 186/83; PULSE 123
[2019-09-27] MEDS ORDERED: Levothyroxine 100 MCG Tab PO SCH (08:00)
[2019-09-27] MEDS ORDERED: Levofloxacin/Dextrose 5%-Water 750 MG in Premix Bag 1 BAG IV SCH (08:15)
[2019-09-27] MEDS: Oseltamivir 75 MG Cap PO SCH (08:51)
[2019-09-27] MEDS ORDERED: Calcium Carbonate/Vitamin D3 1500 MG-400 Units Tab PO SCH (09:00)
[2019-09-27] MEDS ORDERED: Bumetanide 1 MG Tab PO SCH (09:00)
[2019-09-27] MEDS ORDERED: BUDESONIDE INH SCH (09:00)
[2019-09-27] MEDS ORDERED: Sertraline 50 MG Tab PO SCH (09:00)
[2019-09-27] MEDS ORDERED: Lisinopril 10 MG Tab PO SCH (09:00)
[2019-09-27] MEDS ORDERED: Cholecalciferol (Vitamin D3) 25 MCG Tab PO SCH (09:00)
[2019-09-27] MEDS ORDERED: Aspirin 81 MG Tab.EC PO SCH (09:00)
[2019-09-27] MEDS ORDERED: Diltiazem 180 MG Cap.CD PO SCH (09:00)
[2019-09-27] MEDS ORDERED: methylPREDNISolone Sodium Succinate 125 MG/2 ML SDV IVPUSH SCH (09:00)
[2019-09-27] MEDS ORDERED: Diltiazem 120 MG Cap.CD PO SCH (09:00)
[2019-09-27] MEDS ORDERED: FORMOTEROL INH SCH (09:00)
--- NOTE | 2019-09-27 11:17 | PCM.DCSUM1 ---
Discharge Summary - Hospital Course Brief History: 74 yo female with pmh of asthma who presented with one day history of shortness of breath and wheezing. Patient reports having a cold symptoms for several day prior. In the ED she was give duonebs with improvement in her symptoms. CXR suggested bronchitis. - Discharge Data Discharge Date: 09/27/19 Discharge Disposition: Home, Self-Care 01 Condition: Stable - Referral to Home Health Primary Care Physician: PCP None - Patient Instructions Diet: Usual Diet as Tolerated Activity: As Tolerated Showering/Bathing: May Shower Notify Provider of: Fever, Increased Pain, Swelling and Redness, Drainage, Nausea and/or Vomiting - Discharge Plan *PRESCRIPTION DRUG MONITORING PROGRAM REVIEWED*: Not Applicable *COPY OF PRESCRIPTION DRUG MONITORING REPORT IN PATIENT MARTHA: Not Applicable Prescriptions/Med Rec: levoFLOXacin [Levaquin] 750 mg PO DAILY #3 tab Oseltamivir [Tamiflu] 75 mg PO BID #8 cap predniSONE [Prednisone] 40 mg PO DAILY #8 tablet Home Medications: Home Meds Budesonide/Formoterol [Symbicort 160-4.5 MCG] 2 puff INH BID 05/08/16 [History] Levothyroxine Sodium [Synthroid] 100 mcg PO DAILY 05/08/16 [History] Lisinopril 10 mg PO DAILY 05/08/16 [History] Omeprazole 40 mg PO DAILY PRN 05/08/16 [History] Sertraline HCl [Zoloft] 100 mg PO DAILY 05/08/16 [History] azaTHIOprine [Azathioprine] 50 mg PO DAILY 05/08/16 [History] dilTIAZem HCl [Diltiazem 24Hr ER] 300 mg PO DAILY 05/08/16 [History] predniSONE [Prednisone] 2.5 mg PO BID 05/08/16 [History] Albuterol [Ventolin HFA] 2 puff INH QID PRN 01/26/18 [History] Aspirin [Low Dose Aspirin EC] 81 mg PO DAILY 01/26/18 [History] Bumetanide 0.5 mg PO DAILY 01/26/18 [History] Calcium Carbonate/Vitamin D3 [Calcium 500 + Vit D Caplet] 1 tab PO BID 01/26/18 [History] Fish Oil/[place]-3 Fatty Acids [Fish Oil 1,000 MG] 2 cap PO DAILY 01/26/18 [ History] Cholecalciferol (Vitamin D3) [Vitamin D3] 1,000 unit PO DAILY 09/26/19 [History] Oseltamivir [Tamiflu] 75 mg PO BID #8 cap 09/27/19 [Rx] levoFLOXacin [Levaquin] 750 mg PO DAILY #3 tab 09/27/19 [Rx] predniSONE [Prednisone] 40 mg PO DAILY #8 tablet 09/27/19 [Rx] Oxygen Therapy Mode: Room Air Patient Handouts: Oseltamivir capsules, Levofloxacin tablets, Prednisone tablets, Acute Bronchitis, Adult Referrals: [facility] [Outside] Forrest Eduardo MD [Ordering Only Provider] - 10/11/19 3:00 pm - Discharge Summary/Plan Comment DC Time >30 min.: No Discharge Summary/Plan Comment: Admitting Diagnoses: Asthma exacerbation Bronchitis Influenza Discharge Diagnoses: Asthma exacerbation Bronchitis Influenza Ade was admitted secondary to increasing SOB, she wsa treated with Solumedrol, Levaquin, and nebulizers. She was tested for influenza, but found to be negative. She later reports she was around several family members who had influenza. Tamiflu was then started as well. She is feeling improved today and is asking for discharge home. She will be sent home with Prednisone 40 mg x 4 more days, Levaquin 750 x 3 more days and Tamiflu for total of 5 days. She is to follow up with PCP in 1 week. return to ED or clinic sooner is concerns should arise. - Patient Data Vitals - Most Recent: Last Vital Signs Temp 97.8 F 09/27/19 07:55 Pulse 123 H 09/27/19 08:52 Resp 22 H 09/27/19 07:55 BP 186/83 H 09/27/19 08:52 Pulse Ox 95 09/27/19 07:55 Weight - Most Recent: 77.5 kg I&O - Last 24 hours: Intake & Output 09/26/19 09/27/19 09/27/19 22:59 06:59 14:59 Intake Total 400 3969 Output Total 300 1150 Balance 100 2819 Lab Results - Last 24 hrs: Laboratory Results - last 24 hr 09/26/19 09/26/19 09/27/19 Range/Units 15:00 20:01 01:10 WBC (4.0-11.0) K/uL RBC (4.30-5.90) M/uL Hgb (12.0-16.0) g/dL Hct (36.0-46.0) % MCV (80.0-98.0) fL MCH (27.0-32.0) pg MCHC (31.0-37.0) g/dL RDW Std Deviation (28.0-62.0) fl RDW Coeff of Alex (11.0-15.0) % Plt Count (150-400) K/uL MPV (7.40-12.00) fL Neut % (Auto) (48.0-80.0) % Lymph % (Auto) (16.0-40.0) % [place] % (Auto) (0.0-15.0) % Eos % (Auto) (0.0-7.0) % Baso % (Auto) (0.0-1.5) % Neut # (Auto) (1.4-5.7) K/uL Lymph # (Auto) (0.6-2.4) K/uL [place] # (Auto) (0.0-0.8) K/uL Eos # (Auto) (0.0-0.7) K/uL Baso # (Auto) (0.0-0.1) K/uL Nucleated RBC % /100WBC Nucleated RBCs # K/uL Lactate 3.0 H* 3.6 H* 1.8 (0.20-2.00) mmol/L Sodium (136-145) mmol/L Potassium (3.5-5.1) mmol/L Chloride (98-107) mmol/L Carbon Dioxide (21.0-32.0) mmol/L BUN (7.0-18.0) mg/dL Creatinine (0.6-1.0) mg/dL Est Cr Clr Drug Dosing mL/min Estimated GFR (MDRD) ml/min Glucose (74-106) mg/dL Calcium (8.5-10.1) mg/dL 09/27/19 09/27/19 Range/Units 05:10 05:10 WBC 6.06 (4.0-11.0) K/uL RBC 3.95 L (4.30-5.90) M/uL Hgb 11.2 L (12.0-16.0) g/dL Hct 35.7 L (36.0-46.0) % MCV 90.4 (80.0-98.0) fL MCH 28.4 (27.0-32.0) pg MCHC 31.4 (31.0-37.0) g/dL RDW Std Deviation 50.6 (28.0-62.0) fl RDW Coeff of Alex 15 (11.0-15.0) % Plt Count 165 (150-400) K/uL MPV 9.90 (7.40-12.00) fL Neut % (Auto) 82.0 H (48.0-80.0) % Lymph % (Auto) 5.3 L (16.0-40.0) % [place] % (Auto) 12.7 (0.0-15.0) % Eos % (Auto) 0.0 (0.0-7.0) % Baso % (Auto) 0.0 (0.0-1.5) % Neut # (Auto) 5.0 (1.4-5.7) K/uL Lymph # (Auto) 0.3 L (0.6-2.4) K/uL [place] # (Auto) 0.8 (0.0-0.8) K/uL Eos # (Auto) 0.0 (0.0-0.7) K/uL Baso # (Auto) 0.0 (0.0-0.1) K/uL Nucleated RBC % 0.0 /100WBC Nucleated RBCs # 0 K/uL Lactate (0.20-2.00) mmol/L Sodium 143 (136-145) mmol/L Potassium 3.5 (3.5-5.1) mmol/L Chloride 110 H (98-107) mmol/L Carbon Dioxide 21.6 (21.0-32.0) mmol/L BUN 11 (7.0-18.0) mg/dL Creatinine 0.8 (0.6-1.0) mg/dL Est Cr Clr Drug Dosing 48.80 mL/min Estimated GFR (MDRD) > 60.0 ml/min Glucose 124 H (74-106) mg/dL Calcium 8.0 L (8.5-10.1) mg/dL TARA Results - Last 24 hrs: Microbiology 09/26/19 10:17 Aerobic Blood Culture - Preliminary Blood - Venous NO GROWTH AFTER 1 DAY Anaerobic Blood Culture - Preliminary NO GROWTH AFTER 1 DAY 09/26/19 10:31 Aerobic Blood Culture - Preliminary Blood - Venous - Lab Draw NO GROWTH AFTER 1 DAY Anaerobic Blood Culture - Preliminary NO GROWTH AFTER 1 DAY 09/26/19 07:47 Influenza Type A Antigen Screen - Final Nasopharyngeal Swab NEGATIVE INFLUENZA A VIRUS AG REFERENCE RANGE: NEGATIVE Influenza Type B Antigen Screen - Final NEGATIVE INFLUENZA B VIRUS AG REFERENCE RANGE: NEGATIVE 09/26/19 07:47 Group A Streptococcus Rapid Screen - Final Throat NEGATIVE STREP A SCREEN REFERENCE RANGE: NEGATIVE Med Orders - Current: Current Medications Albuterol/Ipratropium (Duoneb 3.0-0.5 Mg/3 Ml) 3 ml NEB Q2H PRN PRN Reason: Wheezing Albuterol/Ipratropium (Duoneb 3.0-0.5 Mg/3 Ml) 3 ml NEB Q6HRRT [facility] Last Admin: 09/27/19 11:13 Dose: 3 ml Aspirin (Halfprin) 81 mg PO DAILY [facility] Last Admin: 09/27/19 08:51 Dose: 81 mg Azathioprine (Imuran) 50 mg PO DAILY [facility] Last Admin: 09/27/19 08:53 Dose: 50 mg Calcium Carbonate (Caltrate 600+D 1500 Mg-400 Units) 1 tab PO BID [facility] Last Admin: 09/27/19 08:51 Dose: 1 tab Cholecalciferol (Vitamin D3) 25 mcg PO DAILY [facility] Last Admin: 09/27/19 08:54 Dose: 25 mcg Diltiazem HCl (Cardizem Cd) 120 mg PO DAILY [facility] Last Admin: 09/27/19 08:52 Dose: 120 mg Diltiazem HCl (Cardizem Cd) 180 mg PO DAILY [facility] Last Admin: 09/27/19 08:52 Dose: 180 mg Levofloxacin/Dextrose 750 mg/ (Premix) 150 mls @ 100 mls/hr IV Q24H [facility] Last Admin: 09/27/19 08:54 Dose: 100 mls/hr Levothyroxine Sodium (Synthroid) 100 mcg PO ACBREAKFAST [facility] Last Admin: 09/27/19 08:46 Dose: 100 mcg Lisinopril (Prinivil) 10 mg PO DAILY [facility] Last Admin: 09/27/19 08:48 Dose: 10 mg Methylprednisolone Sodium Succinate (Solu-Medrol) 125 mg IVPUSH DAILY [facility] Last Admin: 09/27/19 08:54 Dose: 125 mg Omeprazole (Omeprazole) 40 mg PO ACBREAKFAST PRN PRN Reason: Abdominal Pain Last Admin: 09/27/19 08:47 Dose: 40 mg Oseltamivir Phosphate (Tamiflu) 75 mg PO BID [facility] Last Admin: 09/27/19 08:51 Dose: 75 mg Budesonide/Formoterol 160-4.5 Mcg/Puff (Symbicort) 6 Gm Inhaler 2 each INH BID [facility] Last Admin: 09/27/19 10:19 Dose: Not Given Sertraline HCl (Zoloft) 100 mg PO DAILY [facility] Last Admin: 09/27/19 08:51 Dose: 100 mg Sodium Chloride (Saline Flush) 10 ml FLUSH ASDIRECTED PRN PRN Reason: Keep Vein Open Sodium Chloride (Saline Flush) 2.5 ml FLUSH ASDIRECTED PRN PRN Reason: Keep Vein Open Discontinued Medications Albuterol (Proventil Neb Soln) 5 mg NEB ONETIME ONE Stop: 09/26/19 08:50 Last Admin: 09/26/19 09:17 Dose: Not Given Albuterol (Proventil Neb Soln) 2.5 mg NEB ONETIME ONE Stop: 09/26/19 09:16 Last Admin: 09/26/19 09:21 Dose: 2.5 mg Albuterol (Proventil Neb Soln) 2.5 mg NEB ONETIME ONE Stop: 09/26/19 09:17 Last Admin: 09/26/19 09:28 Dose: 2.5 mg Albuterol/Ipratropium (Duoneb 3.0-0.5 Mg/3 Ml) 3 ml NEB ONETIME ONE Stop: 09/26/19 07:33 Last Admin: 09/26/19 07:46 Dose: 3 ml Bumetanide (Bumex) 0.5 mg PO DAILY [facility] Sodium Chloride (Normal Saline) 1,000 mls @ 999 mls/hr IV .Bolus ONE Stop: 09/26/19 08:39 Last Admin: 09/26/19 07:46 Dose: 999 mls/hr Levofloxacin/Dextrose 750 mg/ (Premix) 150 mls @ 100 mls/hr IV ONETIME ONE Stop: 09/26/19 11:37 Last Admin: 09/26/19 10:36 Dose: 100 mls/hr Sodium Chloride (Normal Saline) 1,000 mls @ 125 mls/hr IV ASDIRECTED [facility] Last Admin: 09/27/19 04:15 Dose: 125 mls/hr Sodium Chloride (Normal Saline) 1,000 mls @ 999 mls/hr IV .Bolus ONE Stop: 09/26/19 16:25 Last Admin: 09/26/19 15:32 Dose: 999 mls/hr Sodium Chloride (Normal Saline) 1,000 mls @ 500 mls/hr IV ASDIRECTED [facility] Stop: 09/27/19 00:01 Last Admin: 09/26/19 23:38 Dose: 500 mls/hr Methylprednisolone Sodium Succinate (Solu-Medrol) 125 mg IV ONETIME ONE Stop: 09/26/19 10:16 Last Admin: 09/26/19 10:34 Dose: 125 mg
== END 2019-09-27 15:01 | disposition home or self-care (01) ==
LOC: MW.ED 07:23 → MW.MS 10:09
PROVIDERS: ADMIT Internal Medicine; ATTEND Internal Medicine
DX: J45.901 Unspecified asthma with (acute) exacerbation (principal); J11.1 Influenza due to unidentified influenza virus with other respiratory manifestations; I10 Essential (primary) hypertension; E03.9 Hypothyroidism, unspecified; E66.9 Obesity, unspecified; Z88.5 Allergy status to narcotic agent; Z88.1 Allergy status to other antibiotic agents; Z88.8 Allergy status to other drugs, medicaments and biological substances; Z79.890 Hormone replacement therapy; Z87.891 Personal history of nicotine dependence; Z68.30 Body mass index [BMI] 30.0-30.9, adult; Z79.899 Other long term (current) drug therapy
CPT/HCPCS: 36415; 71046; 80048; 80053; 83605; 83880; 84484; 85025; 87040; 87081; 87804; 87880; 93005; 94640; 96361; 96365; 96375; 99285; A9270; J1956; J2930; J7030; J7500; 96376; G0378; J7620-GY

== ENCOUNTER 2024-10-20 09:39 | Emergency (ER) | payer MEDICARE, OTHER ==
[2024-10-20] MEDS ORDERED: Sodium Chloride 0.9% 10 ML Syringe FLUSH PRN (10:13)
[2024-10-20 10:24] LABS: BASOPHILS ABSOLUTE AUTO 0.01 K/uL (0.00-0.20); BASOPHILS PERCENT AUTO 0.1 % (0.0-1.0); EOSINOPHILS ABSOLUTE AUTO 0.06 K/uL (0.00-0.45); EOSINOPHILS PERCENT AUTO 0.6 % (0.0-6.0); HEMATOCRIT 44.8 % (37.0-47.0); HEMOGLOBIN 15.3 g/dL (12.0-16.0); IMMATURE GRAN ABSOLUTE AUTO 0.03 K/uL (0.00-0.05); IMMATURE GRAN PERCENT AUTO 0.3 % (0.0-0.4); LYMPHOCYTES ABSOLUTE AUTO 3.04 K/uL (1.00-4.80); LYMPHOCYTES PERCENT AUTO 30.5 % (24.0-44.0); MEAN CORPUSCULAR HEMOGLOBIN 30.8 pg (28.0-32.0); MEAN CORPUSCULAR HGB CONC 34.2 g/dL (32.0-36.0); MEAN CORPUSCULAR VOLUME 90.1 fL (83.0-99.0); MONOCYTES ABSOLUTE AUTO 0.79 K/uL (0.00-0.80); MONOCYTES PERCENT AUTO 7.9 % (0.0-8.0); NEUTROPHILS ABSOLUTE AUTO 6.05 K/uL (1.80-7.70); NEUTROPHILS PERCENT AUTO 60.6 % (41.0-71.0); PLATELET COUNT,PLT 173 K/uL (150-400); RED BLOOD CELL COUNT 4.97 M/uL (4.10-5.30); WHITE BLOOD CELL COUNT,WBC 9.98 K/uL (3.9-11.3)
[2024-10-20 10:31] LABS: INR 1.08 (0.86-1.11)
[2024-10-20 10:38] LABS: A/G RATIO 0.6 (0.9-1.6); BILIRUBIN TOTAL 0.5 mg/dL (0.2-1.0); CALCIUM 9.2 mg/dL (8.5-10.1); CARBON DIOXIDE,CO2 23.8 mmol/L (21.0-32.0); CREATININE 1.3 mg/dL (0.6-1.0); EST CRCL DRUG DOSING (CG) 26.48 mL/min; POTASSIUM,K 3.7 mmol/L (3.5-5.1); PROTEIN TOTAL,TP 7.8 g/dL (6.4-8.2)
[2024-10-20 11:05] LABS: BASE EXCESS VENOUS 2.9 (-2.0-3.0); PH,VENOUS 7.83 (7.32-7.43)
[2024-10-20] MEDS: Iopamidol 755 MG/ML 500 ML Multipack Bottle IVPUSH STA (11:14)
[2024-10-20] MEDS ORDERED: Heparin Sodium 5,000 Units/ML Vial IVPUSH ONE (11:15)
[2024-10-20] MEDS: Heparin Sodium 5,000 Units/ML Vial IVPUSH ONE (11:23)
[2024-10-20] MEDS: Heparin Sodium/0.45% NaCl 25,000 UNITS/250 ML BAG IV SCH ×2 (11:24→11:49)
[2024-10-20] MEDS: Aspirin 81 MG Tab.Chew PO ONE (11:24)
[2024-10-20 14:08] VITALS: BP 149/80; PULSE 101
== END 2024-10-20 14:08 ==
LOC: MW.ED 09:39
DX: I21.4 Non-ST elevation (NSTEMI) myocardial infarction (principal); I26.02 Saddle embolus of pulmonary artery with acute cor pulmonale; R09.02 Hypoxemia; I10 Essential (primary) hypertension; J45.909 Unspecified asthma, uncomplicated; K21.9 Gastro-esophageal reflux disease without esophagitis; M19.90 Unspecified osteoarthritis, unspecified site; E66.9 Obesity, unspecified; E03.9 Hypothyroidism, unspecified; Z88.8 Allergy status to other drugs, medicaments and biological substances; Z79.82 Long term (current) use of aspirin; Z79.890 Hormone replacement therapy; Z79.899 Other long term (current) drug therapy; Z90.49 Acquired absence of other specified parts of digestive tract; Z68.31 Body mass index [BMI] 31.0-31.9, adult
CPT/HCPCS: 36415; 71045; 71275; 80053; 82803; 83605; 83735; 83880; 84484; 85025; 85610; 85730; 87428; 93005; 96365; 96366; 99285; A9270; J1644; Q9967; 93010

== ENCOUNTER 2025-01-18 08:17 | Inpatient (IN) | payer MEDICARE, OTHER ==
[2025-01-18] MEDS ORDERED: Sodium Chloride 0.9% 10 ML Syringe FLUSH PRN ×2 (09:28→14:10)
[2025-01-18] MEDS ORDERED: Sodium Chloride 0.9% 2.5 ML Syringe FLUSH PRN ×2 (09:28→14:10)
[2025-01-18] MEDS ORDERED: Sodium Chloride 0.9% 20 ML SDV IV PRN (09:28)
[2025-01-18 09:48] LABS: BASOPHILS ABSOLUTE AUTO 0.01 K/uL (0.00-0.20); BASOPHILS PERCENT AUTO 0.3 % (0.0-1.0); EOSINOPHILS ABSOLUTE AUTO 0.07 K/uL (0.00-0.45); EOSINOPHILS PERCENT AUTO 1.8 % (0.0-6.0); HEMATOCRIT 31.4 % (37.0-47.0); HEMOGLOBIN 10.1 g/dL (12.0-16.0); IMMATURE GRAN ABSOLUTE AUTO 0.05 K/uL (0.00-0.05); IMMATURE GRAN PERCENT AUTO 1.3 % (0.0-0.4); LYMPHOCYTES ABSOLUTE AUTO 0.84 K/uL (1.00-4.80); MEAN CORPUSCULAR HEMOGLOBIN 25.5 pg (28.0-32.0); MEAN CORPUSCULAR HGB CONC 32.2 g/dL (32.0-36.0); MEAN CORPUSCULAR VOLUME 79.3 fL (83.0-99.0); MEAN PLATELET VOLUME 10.5 fL (9.4-12.3); MONOCYTES ABSOLUTE AUTO 0.64 K/uL (0.00-0.80); NEUTROPHILS ABSOLUTE AUTO 2.39 K/uL (1.80-7.70); NEUTROPHILS PERCENT AUTO 59.6 % (41.0-71.0); PLATELET COUNT,PLT 152 K/uL (150-400); RED BLOOD CELL COUNT 3.96 M/uL (4.10-5.30)
[2025-01-18 09:59] LABS: INR 1.12 (0.86-1.11); PTT,PARTIAL THROMBOPLSTIN TIME 27.6 SEC (23.9-30.7)
[2025-01-18 10:24] LABS: A/G RATIO 0.7 (0.9-1.6); ALBUMIN 2.8 g/dL (3.4-5.0); BILIRUBIN TOTAL 0.4 mg/dL (0.2-1.0); CALCIUM 8.7 mg/dL (8.5-10.1); CARBON DIOXIDE,CO2 29.2 mmol/L (21.0-32.0); CREATININE 1.1 mg/dL (0.6-1.0); EST CRCL DRUG DOSING (CG) 29.79 mL/min; LACTIC ACID 1.1 mmol/L (0.4-2.0); MAGNESIUM 1.7 mg/dL (1.8-2.4); POTASSIUM,K 3.3 mmol/L (3.5-5.1); PROTEIN TOTAL,TP 6.8 g/dL (6.4-8.2)
[2025-01-18 10:44] LABS: APPEARANCE,URINE SLT CLOUDY; BILIRUBIN,URINE NEGATIVE (NEGATIVE); COLOR,URINE YELLOW; GLUCOSE,URINE NEGATIVE (NEGATIVE); KETONES,URINE TRACE mg/dL (NEGATIVE); LEUKOCYTE ESTERASE,URINE TRACE (NEGATIVE); NITRITE,URINE NEGATIVE (NEGATIVE); OCCULT BLOOD,URINE NEGATIVE (NEGATIVE); PROTEIN,URINE TRACE mg/dL (NEGATIVE); UROBILINOGEN,URINE 0.2 EU/dL (<2.0)
[2025-01-18] MEDS: Potassium Chloride 20 MEQ Tab.ER PO ONE ×2 (10:50→10:52)
[2025-01-18] MEDS: Magnesium Sulfate 2 GM/50 mL 2 GM in Premix Bag 1 BAG IV ONE ×2 (10:50→10:52)
[2025-01-18 11:01] LABS: BACTERIA,URINE FEW (NEGATIVE); EPITHELIAL CELLS,URINE MANY (NONE-FEW); MUCUS,URINE LIGHT (NONE-MOD); RBC,URINE 0-2 (0-2/HPF)
[2025-01-18] MEDS: Iopamidol 755 MG/ML 500 ML Multipack Bottle IVPUSH STA (11:23)
[2025-01-18] MEDS: cefTRIAXone 2 GM in Water For Injection, Sterile 20 ML IVPUSH ONE (12:43)
[2025-01-18] MEDS ORDERED: Albuterol 6.7 GM Inhaler INH PRN (13:57)
[2025-01-18] MEDS ORDERED: Docusate Sodium 100 MG Cap PO PRN (14:10)
[2025-01-18] MEDS ORDERED: Polyethylene Glycol 3350 Powder 17 GM Packet PO PRN (14:10)
[2025-01-18] MEDS ORDERED: Albuterol/Ipratropium 3.0-0.5 MG/3 ML Neb Soln NEB PRN (14:10)
[2025-01-18] MEDS ORDERED: Ondansetron 4 MG/2 ML SDV IVPUSH PRN (14:10)
[2025-01-18] MEDS: Sodium Chloride 0.9% 1,000 ML IV SCH (14:34)
[2025-01-18] MEDS: Doxycycline 100 MG in Sodium Chloride 0.9% 100 ML IV SCH (14:34)
[2025-01-18] MEDS: Acetaminophen 325 MG Tab PO PRN (15:47)
[2025-01-18] MEDS: Apixaban 5 MG Tab PO SCH (15:47)
[2025-01-18] MEDS: Formoterol/Mometasone 200-5 MCG 8.8 GM Inhaler INH SCH (20:52)
[2025-01-18] MEDS: predniSONE 5 MG Tab PO SCH (20:53)
[2025-01-18] MEDS: Montelukast 10 MG Tab PO SCH (20:55)
[2025-01-18] MEDS ORDERED: Apixaban 5 MG Tab PO SCH (21:00)
[2025-01-19 05:57] LABS: BASOPHILS ABSOLUTE AUTO 0.01 K/uL (0.00-0.20); BASOPHILS PERCENT AUTO 0.3 % (0.0-1.0); EOSINOPHILS ABSOLUTE AUTO 0.08 K/uL (0.00-0.45); EOSINOPHILS PERCENT AUTO 2.2 % (0.0-6.0); HEMATOCRIT 29.1 % (37.0-47.0); IMMATURE GRAN ABSOLUTE AUTO 0.05 K/uL (0.00-0.05); IMMATURE GRAN PERCENT AUTO 1.4 % (0.0-0.4); LYMPHOCYTES ABSOLUTE AUTO 0.68 K/uL (1.00-4.80); LYMPHOCYTES PERCENT AUTO 18.5 % (24.0-44.0); MEAN CORPUSCULAR HEMOGLOBIN 25.2 pg (28.0-32.0); MEAN CORPUSCULAR HGB CONC 30.9 g/dL (32.0-36.0); MEAN CORPUSCULAR VOLUME 81.5 fL (83.0-99.0); MEAN PLATELET VOLUME 10.1 fL (9.4-12.3); MONOCYTES ABSOLUTE AUTO 0.48 K/uL (0.00-0.80); MONOCYTES PERCENT AUTO 13.1 % (0.0-8.0); NEUTROPHILS ABSOLUTE AUTO 2.37 K/uL (1.80-7.70); NEUTROPHILS PERCENT AUTO 64.5 % (41.0-71.0); PLATELET COUNT,PLT 169 K/uL (150-400); RED BLOOD CELL COUNT 3.57 M/uL (4.10-5.30); WHITE BLOOD CELL COUNT,WBC 3.67 K/uL (3.9-11.3)
[2025-01-19 06:32] LABS: CALCIUM 8.1 mg/dL (8.5-10.1); CARBON DIOXIDE,CO2 28.8 mmol/L (21.0-32.0); CREATININE 0.9 mg/dL (0.6-1.0); EST CRCL DRUG DOSING (CG) 36.41 mL/min; MAGNESIUM 2.2 mg/dL (1.8-2.4); POTASSIUM,K 4.1 mmol/L (3.5-5.1)
[2025-01-19] MEDS: Levothyroxine 100 MCG Tab PO SCH (06:32)
[2025-01-19] MEDS: Diltiazem 120 MG Cap.CD PO SCH (08:05)
[2025-01-19] MEDS: Sertraline 100 MG Tab PO SCH (08:06)
[2025-01-19] MEDS: cefTRIAXone 1 GM in Water For Injection, Sterile 10 ML IVPUSH SCH (08:07)
[2025-01-19] MEDS: Lisinopril 10 MG Tab PO SCH (08:07)
[2025-01-19] MEDS ORDERED: Bumetanide 1 MG Tab PO SCH (09:00)
[2025-01-20 05:51] LABS: BASOPHILS ABSOLUTE AUTO 0.01 K/uL (0.00-0.20); BASOPHILS PERCENT AUTO 0.3 % (0.0-1.0); EOSINOPHILS ABSOLUTE AUTO 0.09 K/uL (0.00-0.45); EOSINOPHILS PERCENT AUTO 2.5 % (0.0-6.0); HEMATOCRIT 28.8 % (37.0-47.0); HEMOGLOBIN 8.8 g/dL (12.0-16.0); IMMATURE GRAN ABSOLUTE AUTO 0.02 K/uL (0.00-0.05); IMMATURE GRAN PERCENT AUTO 0.6 % (0.0-0.4); LYMPHOCYTES ABSOLUTE AUTO 0.71 K/uL (1.00-4.80); LYMPHOCYTES PERCENT AUTO 19.8 % (24.0-44.0); MEAN CORPUSCULAR HEMOGLOBIN 24.7 pg (28.0-32.0); MEAN CORPUSCULAR HGB CONC 30.6 g/dL (32.0-36.0); MEAN CORPUSCULAR VOLUME 80.9 fL (83.0-99.0); MEAN PLATELET VOLUME 10.3 fL (9.4-12.3); MONOCYTES ABSOLUTE AUTO 0.42 K/uL (0.00-0.80); MONOCYTES PERCENT AUTO 11.7 % (0.0-8.0); NEUTROPHILS ABSOLUTE AUTO 2.33 K/uL (1.80-7.70); NEUTROPHILS PERCENT AUTO 65.1 % (41.0-71.0); PLATELET COUNT,PLT 141 K/uL (150-400); RED BLOOD CELL COUNT 3.56 M/uL (4.10-5.30); WHITE BLOOD CELL COUNT,WBC 3.58 K/uL (3.9-11.3)
[2025-01-20 06:22] LABS: CALCIUM 8.3 mg/dL (8.5-10.1); CARBON DIOXIDE,CO2 27.7 mmol/L (21.0-32.0); CREATININE 0.9 mg/dL (0.6-1.0); EST CRCL DRUG DOSING (CG) 36.41 mL/min; MAGNESIUM 1.9 mg/dL (1.8-2.4); POTASSIUM,K 3.8 mmol/L (3.5-5.1)
[2025-01-20 07:07] LABS: BORDETELLA PARAPERT IS1001 Not Detected (Not Detected)
[2025-01-20] MEDS: Doxycycline Monohydrate 100 MG Cap PO SCH (11:14)
[2025-01-20] MEDS: Bumetanide 1 MG Tab PO SCH (11:49)
[2025-01-21 06:15] LABS: BASOPHILS ABSOLUTE AUTO 0.01 K/uL (0.00-0.20); BASOPHILS PERCENT AUTO 0.3 % (0.0-1.0); EOSINOPHILS ABSOLUTE AUTO 0.08 K/uL (0.00-0.45); HEMOGLOBIN 9.2 g/dL (12.0-16.0); IMMATURE GRAN ABSOLUTE AUTO 0.04 K/uL (0.00-0.05); LYMPHOCYTES ABSOLUTE AUTO 0.74 K/uL (1.00-4.80); LYMPHOCYTES PERCENT AUTO 18.7 % (24.0-44.0); MEAN CORPUSCULAR HEMOGLOBIN 24.3 pg (28.0-32.0); MEAN CORPUSCULAR HGB CONC 30.7 g/dL (32.0-36.0); MEAN CORPUSCULAR VOLUME 79.2 fL (83.0-99.0); MEAN PLATELET VOLUME 10.4 fL (9.4-12.3); MONOCYTES ABSOLUTE AUTO 0.47 K/uL (0.00-0.80); MONOCYTES PERCENT AUTO 11.9 % (0.0-8.0); NEUTROPHILS ABSOLUTE AUTO 2.61 K/uL (1.80-7.70); NEUTROPHILS PERCENT AUTO 66.1 % (41.0-71.0); PLATELET COUNT,PLT 152 K/uL (150-400); RED BLOOD CELL COUNT 3.79 M/uL (4.10-5.30); WHITE BLOOD CELL COUNT,WBC 3.95 K/uL (3.9-11.3)
[2025-01-21 06:40] LABS: CALCIUM 8.7 mg/dL (8.5-10.1); CREATININE 0.9 mg/dL (0.6-1.0); EST CRCL DRUG DOSING (CG) 36.41 mL/min; POTASSIUM,K 3.3 mmol/L (3.5-5.1)
[2025-01-21] MEDS: Potassium Chloride 20 MEQ Tab.ER PO ONE (09:05)
[2025-01-21 10:57] VITALS: BP 148/60; PULSE 88
== END 2025-01-21 11:25 | disposition home or self-care (01) | DRG 193 ==
LOC: MW.ED 08:17 → MW.MS 13:20
PROVIDERS: ADMIT Family Medicine; ATTEND Family Medicine
DX: J18.9 Pneumonia, unspecified organism (principal); J96.01 Acute respiratory failure with hypoxia; J45.20 Mild intermittent asthma, uncomplicated; D3A.8 Other benign neuroendocrine tumors; E03.9 Hypothyroidism, unspecified; K75.4 Autoimmune hepatitis; J44.9 Chronic obstructive pulmonary disease, unspecified; I10 Essential (primary) hypertension; K21.9 Gastro-esophageal reflux disease without esophagitis; M19.90 Unspecified osteoarthritis, unspecified site; M81.0 Age-related osteoporosis without current pathological fracture; F41.9 Anxiety disorder, unspecified; F32.A Depression, unspecified; E66.9 Obesity, unspecified; Z98.890 Other specified postprocedural states; Z86.711 Personal history of pulmonary embolism; Z88.5 Allergy status to narcotic agent; Z88.1 Allergy status to other antibiotic agents; Z88.8 Allergy status to other drugs, medicaments and biological substances; Z79.899 Other long term (current) drug therapy; Z79.51 Long term (current) use of inhaled steroids; Z79.01 Long term (current) use of anticoagulants; Z79.52 Long term (current) use of systemic steroids; Z68.32 Body mass index [BMI] 32.0-32.9, adult; Z85.038 Personal history of other malignant neoplasm of large intestine; Z98.49 Cataract extraction status, unspecified eye; Z90.89 Acquired absence of other organs; Z90.49 Acquired absence of other specified parts of digestive tract
CPT/HCPCS: 36415; 71275; 74174; 80053; 81001; 83605; 83690; 83735; 83880; 84484; 85025; 85610; 85730; 87040 ×2; 87086; 87486; 87581; 87633; 93005; A9270; J0696; J3475; Q9967; 80048; 87088; 87186; 87899; 97162-GP; 97530-GP; J3490; J7030; J7512

== ENCOUNTER 2025-04-04 10:32 | Emergency (ER) | payer MEDICARE, OTHER ==
[2025-04-04] MEDS: Etomidate 2 MG/ML 20 ML SDV IVPUSH ONE (11:17)
[2025-04-04 11:20] LABS: BASOPHILS ABSOLUTE AUTO 0.02 K/uL (0.00-0.20); BASOPHILS PERCENT AUTO 0.2 % (0.0-1.0); EOSINOPHILS ABSOLUTE AUTO 0.19 K/uL (0.00-0.45); EOSINOPHILS PERCENT AUTO 2.3 % (0.0-6.0); IMMATURE GRAN ABSOLUTE AUTO 0.05 K/uL (0.00-0.05); IMMATURE GRAN PERCENT AUTO 0.6 % (0.0-0.4); LYMPHOCYTES ABSOLUTE AUTO 3.03 K/uL (1.00-4.80); LYMPHOCYTES PERCENT AUTO 36.1 % (24.0-44.0); MEAN PLATELET VOLUME 9.9 fL (9.4-12.3); MONOCYTES ABSOLUTE AUTO 0.63 K/uL (0.00-0.80); MONOCYTES PERCENT AUTO 7.5 % (0.0-8.0); NEUTROPHILS ABSOLUTE AUTO 4.47 K/uL (1.80-7.70); NEUTROPHILS PERCENT AUTO 53.3 % (41.0-71.0); NRBC ABSOLUTE 0.00 K/uL (0.00-0.02); NRBC PERCENT 0.0 /100WBC (0.0-0.2); PLATELET COUNT,PLT 172 K/uL (150-400); RED BLOOD CELL COUNT 4.76 M/uL (4.10-5.30); WHITE BLOOD CELL COUNT,WBC 8.39 K/uL (3.9-11.3)
[2025-04-04 11:40] LABS: A/G RATIO 0.7 (0.9-1.6); ALANINE AMINOTRANSFERASE,ALT 40.0 IU/L (14-63); ASPARTATE AMNIOTRANSFERASE,AST 49.0 IU/L (15-37); BILIRUBIN TOTAL 0.3 mg/dL (0.2-1.0); BLOOD UREA NITROGEN,BUN 20.0 mg/dL (7.0-18.0); CARBON DIOXIDE,CO2 26.9 mmol/L (21.0-32.0); CHLORIDE,CL 101.0 mmol/L (98-107); CREATININE 1.4 mg/dL (0.6-1.0); EST CRCL DRUG DOSING (CG) 25.77 mL/min; GLUCOSE RANDOM 142.0 mg/dL (74-106); POTASSIUM,K 3.1 mmol/L (3.5-5.1); PROTEIN TOTAL,TP 7.2 g/dL (6.4-8.2); SODIUM,NA 139.0 mmol/L (136-145)
[2025-04-04 11:43] LABS: ESTIMATED GFR 38.0 mL/min (>60)
[2025-04-04] MEDS: Ondansetron 4 MG/2 ML SDV IVPUSH ONE (11:46)
[2025-04-04] MEDS: fentaNYL 50 MCG/ML SDV IVPUSH ONE (11:46)
[2025-04-04] MEDS ORDERED: Ropivacaine 0.5% 5 MG/ML 30 ML SDV ONE (12:43)
[2025-04-04] MEDS: dexmedeTOMIDine HCl 200 MCG/2 ML SDV IV STA (13:33)
[2025-04-04] MEDS: Ketamine 500 mg/10 ML MDV IV ONE (13:33)
[2025-04-04] MEDS: Propofol 200 MG/20 ML SDV IVPUSH ONE (13:33)
[2025-04-04] MEDS: Potassium Chloride 20 MEQ Tab.ER PO ONE (14:50)
[2025-04-04] MEDS: Potassium Chloride 10% 20 MEQ/15 ML Soln 15 ML UD Cup PO ONE (15:15)
[2025-04-04 15:20] VITALS: BP 131/59; PULSE 97
== END 2025-04-04 15:24 | disposition home or self-care (01) ==
LOC: MW.ED 10:32
DX: S52.601A Unspecified fracture of lower end of right ulna, initial encounter for closed fracture (principal); S52.501A Unspecified fracture of the lower end of right radius, initial encounter for closed fracture; I10 Essential (primary) hypertension; E66.9 Obesity, unspecified; E03.9 Hypothyroidism, unspecified; Z88.1 Allergy status to other antibiotic agents; Z88.8 Allergy status to other drugs, medicaments and biological substances; Z79.890 Hormone replacement therapy; Z79.899 Other long term (current) drug therapy; Z75.3 Unavailability and inaccessibility of health-care facilities; Z68.29 Body mass index [BMI] 29.0-29.9, adult; W01.0XXA Fall on same level from slipping, tripping and stumbling without subsequent striking against object, initial encounter
CPT/HCPCS: 25605; 36415; 73100; 80053; 85025; 96361; 96374; 96375; 99152; 99283; A9270; J2003; J2405; J2704; J2795; J3010; J3490; J7030; 01820; 64415; 64450; 99151; 99284

== ENCOUNTER 2025-04-07 09:08 | Emergency (ER) | payer MEDICARE, OTHER ==
[2025-04-07 10:07] LABS: BASOPHILS ABSOLUTE AUTO 0.02 K/uL (0.00-0.20); BASOPHILS PERCENT AUTO 0.3 % (0.0-1.0); EOSINOPHILS ABSOLUTE AUTO 0.09 K/uL (0.00-0.45); EOSINOPHILS PERCENT AUTO 1.1 % (0.0-6.0); IMMATURE GRAN ABSOLUTE AUTO 0.08 K/uL (0.00-0.05); IMMATURE GRAN PERCENT AUTO 1.0 % (0.0-0.4); LYMPHOCYTES ABSOLUTE AUTO 1.22 K/uL (1.00-4.80); LYMPHOCYTES PERCENT AUTO 15.4 % (24.0-44.0); MEAN PLATELET VOLUME 9.6 fL (9.4-12.3); MONOCYTES ABSOLUTE AUTO 0.85 K/uL (0.00-0.80); MONOCYTES PERCENT AUTO 10.7 % (0.0-8.0); NEUTROPHILS ABSOLUTE AUTO 5.65 K/uL (1.80-7.70); NEUTROPHILS PERCENT AUTO 71.5 % (41.0-71.0); NRBC ABSOLUTE 0.00 K/uL (0.00-0.02); NRBC PERCENT 0.0 /100WBC (0.0-0.2); PLATELET COUNT,PLT 160 K/uL (150-400); RED BLOOD CELL COUNT 4.50 M/uL (4.10-5.30); WHITE BLOOD CELL COUNT,WBC 7.91 K/uL (3.9-11.3)
[2025-04-07 10:29] LABS: A/G RATIO 0.6 (0.9-1.6); ALANINE AMINOTRANSFERASE,ALT 30.0 IU/L (14-63); ASPARTATE AMNIOTRANSFERASE,AST 39.0 IU/L (15-37); BILIRUBIN TOTAL 0.4 mg/dL (0.2-1.0); BLOOD UREA NITROGEN,BUN 21.0 mg/dL (7.0-18.0); CARBON DIOXIDE,CO2 27.7 mmol/L (21.0-32.0); CHLORIDE,CL 100.0 mmol/L (98-107); CREATININE 1.4 mg/dL (0.6-1.0); EST CRCL DRUG DOSING (CG) 23.4 mL/min; GLUCOSE RANDOM 127.0 mg/dL (74-106); POTASSIUM,K 3.6 mmol/L (3.5-5.1); PROTEIN TOTAL,TP 7.1 g/dL (6.4-8.2); SODIUM,NA 138.0 mmol/L (136-145)
[2025-04-07 10:31] LABS: ESTIMATED GFR 38.0 mL/min (>60)
[2025-04-07 10:32] LABS: LACTIC ACID 1.4 mmol/L (0.4-2.0)
[2025-04-07] MEDS: Potassium Chloride 20 MEQ Tab.ER PO ONE (11:12)
[2025-04-07 12:17] VITALS: BP 104/59; PULSE 97
== END 2025-04-07 12:16 | disposition home or self-care (01) ==
LOC: MW.ED 09:08
DX: I95.9 Hypotension, unspecified (principal); I10 Essential (primary) hypertension; J45.909 Unspecified asthma, uncomplicated; E66.9 Obesity, unspecified; Z88.5 Allergy status to narcotic agent; Z88.8 Allergy status to other drugs, medicaments and biological substances; Z79.899 Other long term (current) drug therapy; Z79.890 Hormone replacement therapy; Z90.49 Acquired absence of other specified parts of digestive tract
CPT/HCPCS: 36415; 71045; 80053; 83605; 85025; 85379; 87040; 93005; 96360; 99285; J7040; 99283